=== PATIENT | female | born 1945 | race Caucasian/White ===

== ENCOUNTER → 2016-08-25 | Outpatient (CLI) | payer OTHER, MEDICARE ==
[~2016-08-25] MED LIST: ARTHRITIS PAIN650 M1 PO; AUGMENTIN 875-1 EACH PO; BACTRIM DS 8001 TAB PO; CELEXA40 MG PO; CIPRO 500MG TA500 MG PO; CRANBERRY400 MG PO; DIFLUCAN 200MG200 MG PO; DULCOLAX100 MG PO; FERROUS SULFAT325 M2 PO; GABAPENTIN 600600 MG PO; GABAPENTIN300 MG PO; GOOD SENSE NASA30 MG PO; LEVAQUIN500 MG PO; LEVOFLOXACIN 7750 M1 PO; LEVOTHROID0.175 MG PO; LEVOTHYROXIN0.025 M1 PO; LEVOTHYROXIN0.075 M1 PO; LEVOTHYROXINE0.15 MG PO; LISINOPRIL 20MG20 MG PO; LORTAB 500 MG-71 TAB PO; MIRALAX(PO17 GM/1 PA PO; MIRALAX17 GM/DOSE PO; MIRAPEX 0.250.25 MG PO; NORCO 325 MG-51 TAB PO; PERCOCET 5/3251 EACH PO; PHENERGAN 25MG.25 M1 PO; PRAVASTATIN 40M40 MG PO; RIFADIN 300MG300 MG PO; ROBAXIN 500 MG500 MG PO; SLEEPING PILL PO; VALIUM5 MG PO; VOLTAREN50 MG PO; ZOFRAN ODT4 MG PO
[2016-08-25 17:40] LABS: BUN 13 mg/dL (7-18)
[2016-08-25 17:46] LABS: GFR (ESTIMATED) 45 ML/MIN (59-)
== END ==
LOC: LAB 15:18
PROVIDERS: Internal Medicine Gastroenterology
DX: R74.8 Abnormal levels of other serum enzymes (principal); K75.4 Autoimmune hepatitis

== ENCOUNTER → 2016-09-02 | Outpatient (CLI) | payer OTHER, MEDICARE ==
--- NOTE | 2016-09-03 07:26 | RADIOLOGY REPORT PS360 ---
KNEE-3 VIEWS-LT HISTORY: Knee pain PRIMARY OSTEOARTHRITIS OF LEFT KNEE ORDERING PHYSICIAN: Brendan Arango MD PATIENT AGE: 70 years COMPARISON: 03/25/2016 FINDINGS: There are mild osteoarthritic changes of the left knee with decrease in the joint space medially and with small osteophytes at the medial compartment and patellofemoral joint as well as the lateral compartment. No fracture or dislocation. No lytic or blastic change. No obvious effusion. IMPRESSION: No change mild osteoarthritis of the left knee
== END ==
LOC: RAD 15:42
DX: M15.0 Primary generalized (osteo)arthritis (principal); M17.12 Unilateral primary osteoarthritis, left knee

== ENCOUNTER 2017-02-21 11:04 | Emergency (ER) | payer OTHER, MEDICARE ==
[~2017-02-21] VITALS: Ht 165.1 cm; Wt 90.7 kg
[2017-02-21] MEDS ORDERED: PREDNISONE 5MG.5 MG PO (11:15)
[2017-02-21] MEDS ORDERED: CALCIUM + D SO1 EACH PO (11:15)
[2017-02-21] MEDS ORDERED: AZATHIOPRINE50 MG PO (11:16)
[2017-02-21] MEDS ORDERED: MELOXICAM15 MG PO (11:17)
[2017-02-21] MEDS ORDERED: FLONASE 50 MCG16 GM (11:32)
[2017-02-21] MEDS ORDERED: CLARITIN 10MG T10 MG PO (11:32)
[2017-02-21 11:33] VITALS: BP 164/98
--- NOTE | 2017-02-21 11:33 | Urgent Treatment Center Report ---
History of Present Issue Date/Time Seen by Provider 02/21/17 1122 Visit Reason Pt arrived:Walked Presenting Problem:PT STATES HEADACHE, RUNNY NOSE AND SNEEZING THAT BEGAN LAST NIGHT Location if Accident: Onset of symptoms date/time:02/20/17/ or onset unknown for:MEDICAL HX UNKNOWN Have you (or family members/close friends) recently traveled outside the [place]? N If Yes, where/when: Have you had exposure to infectious disease within the past month? TB? Other? Specify: c/o not feeling well. General malaise this morning with new onset rhinorrhea, nasal congestion, PND, sneezing. Blames symptoms on working lawn and garden last night at [employer] in the cold without a jacket. No fever, aches, chills. Tylenol sinus once hasn't helped. Source patient Exam Limitations no limitations ALLERGIES Coded Allergies: amoxicillin (01/28/16) clavulanic acid (From Augmentin) (01/28/16) sulfamethoxazole (From Bactrim) (01/28/16) trimethoprim (From Bactrim) (01/28/16) Home Medications Active Scripts LISINOPRIL (Lisinopril) 20 MG PO DAILY #30 TAB Ref 2 Prov: 04/28/12 Reported Medications Gabapentin (Gabapentin 600MG) 1,200 MG PO BID Methocarbamol (Robaxin 500MG) 1,000 MG PO TID POLYETHYLENE GLYCOL (Miralax) 17 GM PO DAILY Pramipexole Dihydrochloride Mo (Mirapex 0.25 Mg Tablets) 0.25 MG PO TID Levothyroxine Sodium (Levothyroxine 0.025MG) 0.125 MG PO DAILY #30 TAB Ca Carbonate/Vitamin D3/Vit K (Calcium + D Soft Chewable Tab) 1 EACH PO DAILY Prednisone (Prednisone 5MG) 5 MG PO DAILY Azathioprine 50 MG PO DAILY Meloxicam (Meloxicam 15MG) 15 MG PO DAILY History Medical History General CAD? No Angina: No [place]: No Hypertension? Yes Hyperlipidemia? No CHF? No DVT? No PE? No COPD? No Asthma? No Anemia? No GERD? No Gastric ulcers? No GI Bleed? No Hernia? No Thyroid Problems? Yes Hypothyroidism? Yes CVA? No Seizures? No Diabetes? No Renal Insuffiency? No UTI? Yes Stones? No BPH? No GB Disease: No Nephritic Syndrome? No Asplenia? No Hepatitis? Yes Sickle Cell Disease? No Arthritis? Yes Migraines? No Cataracts? Yes Glaucoma? No MRSA? Yes HIV? No TB? No Anxiety? No Depression? No Cancer? No More? Yes Additional hx: HYPOTHYROID ARTHRITIS Immunization HX DT/Tetanus 1-4 Years Ago Flu 2015-16FSN Pneumonia Received In Past Surgical Hx Previous Surgery?Y COLONOSCOPY CATARACTS TONSILLECTOMY HYSTERECTOMY R WRIST R ANKLE BLADDER TUCK Family History Family HX Diabetes No CAD Yes Hypertension Yes Hyperlipidemia Yes Cancer Yes TB No Social History Smoking Hx Smoker: Former Smoker Tobacco: No Alcohol Alcohol: No Review of Systems All Other Systems Reviewed and Negative Constitutional see HPI Eyes other (itchy eyes), denies drainage ENT see HPI, nose congestion. denies: ear discharge, throat pain, throat swelling. Respiratory see HPI, denies cough, denies shortness of breath, denies wheezing Cardiovascular denies chest pain Gastrointestinal denies no symptoms reported Musculoskeletal see HPI Skin denies rash Psychiatric/Neurological headache ("not pain. more pressure") Physical Exam Vital Signs Vital Signs Date Time Temp Pulse Resp B/P Pulse O2 O2 Flow FiO2 Ox Delivery Rate 02/21 1109 98.3 70 20 164/98 95 General Appearance no apparent distress, obese Eye Exam - bilateral eye normal exam Ear, Nose, Throat normal ENT inspection (x/ clear rhinorrhea) Neck non-tender, supple Respiratory Status Yes: trachea midline, chest symmetrical, non tender chest. No: respiratory distress, use of accessory muscles, pain on inspiration, pain on expiration, productive cough, non productive cough. Lung Sounds anterior: lungs clear. posterior: lungs clear. bilateral: lungs clear. Cardiovascular regular rate/rhythm, no peripheral edema, no murmur Neurologic alert, oriented x 3 Mental status normal mood/affect Skin normal color, warm/dry Lymphatic no adenopathy Medical Decision Making LABS/Meds/Orders Pt receiving controlled substance in ED? No Departure Departure Time of Disposition 1129 Disposition DC Home or Self Care(routine) Clinical Impression Primary Impression: Upper respiratory virus Condition STABLE Referrals Brendan Arango MD (Family) IMMEDIATELY for new or worsening symptoms OR no noticeable improvement over the next 48-72 hours. 911 for difficulty breathing or swallowing. Patient Instructions DI for Viral Upper Respiratory Infection -- Adult Additional Instructions * No sign of bacterial infection. Sounds like possibly allergies if you worked [employer] and this started. I understand it doesn't feel like allergies to you. Could possibly also be viral considering how much of that we are seeing right now. Virus can take 7-14 days to run their course * Monitor Temp. Tylenol every 4 hours as needed and/or ibuprofen every 6 hours as needed (as long as your primary care doctor has told you that it is ok to take both) for fever/aches/pain. ER if fever no less than 101 despite tylenol and ibuprofen * Encourage fluids, water, gatorade, powerade, pedialyte if /toddler/child * warm salt water gargles * warm fluids * sore throat lozenges * sleep elevated * humidifier/vaporizer * flonase 2 sprays each nostril daily but may take 2-3 days to notice improvement with it. * Claritin 10mg daily * Coricidin Hbp product OTC. Ask your pharmacist to direct you to this product as it is safer in those with high blood pressure then tylenol cold and sinus. Use caution with tylenol if you are worried about your liver. Discharge Counseling Counseled pt/family regarding diagnosis, medications/RX, home care, follow up needs Prescriptions Current Visit Scripts Loratadine (Claritin 10MG) 10 MG PO DAILY #30 TAB Fluticasone Propionate (Flonase 50 Mcg Nasal [place]) 2 SPRAY NA DAILY #1 BOT at 1138
== END 2017-02-21 11:42 | disposition home or self-care (01) ==
LOC: UTC 11:04
DX: J06.9 Acute upper respiratory infection, unspecified (principal); Z87.891 Personal history of nicotine dependence; I10 Essential (primary) hypertension; E03.9 Hypothyroidism, unspecified; Z79.899 Other long term (current) drug therapy; Z79.52 Long term (current) use of systemic steroids

== ENCOUNTER → 2017-03-10 | Outpatient (CLI) | payer OTHER, MEDICARE ==
[2017-03-10 12:19] LABS: HEMOGLOBIN 14.5 g/dL (12.2-16.2); LYMPH # 1.5 K/mm3 (0.7-4.5); LYMPH % 20.5 % (10-50.0)
[2017-03-10 14:22] LABS: BUN 18 mg/dL (7-18); GFR (ESTIMATED) 55 ML/MIN (59-)
== END ==
LOC: LAB 11:42
PROVIDERS: Internal Medicine Gastroenterology
DX: K75.4 Autoimmune hepatitis (principal)

== ENCOUNTER → 2017-03-23 | Outpatient (CLI) | payer OTHER, MEDICARE ==
[~2017-03-23] MED LIST changes: +AZATHIOPRINE50 MG PO; +CALCIUM + D SO1 EACH PO; +CLARITIN 10MG T10 MG PO; +FLONASE 50 MCG16 GM; +IMODIUM A-D2 M3 PO; +MELOXICAM15 MG PO; +OMNICEF 300 MG300 MG PO; +PREDNISONE 5MG.5 MG PO; +PROMETHAZINE D118 ML PO; +ZOFRAN4 MG PO
[2017-03-23 23:20] LABS: BUN 16 mg/dL (7-18)
[2017-03-23 23:21] LABS: GFR (ESTIMATED) 62 ML/MIN (59-)
== END ==
LOC: LAB 21:30
PROVIDERS: Internal Medicine Gastroenterology
DX: K75.4 Autoimmune hepatitis (principal)

== ENCOUNTER 2017-04-08 16:46 | Emergency (ER) | payer OTHER, MEDICARE ==
[~2017-04-08] VITALS: Ht 165.1 cm; Wt 90.7 kg
[~2017-04-08 16:46] MED LIST changes: -IMODIUM A-D2 M3 PO; -OMNICEF 300 MG300 MG PO; -PROMETHAZINE D118 ML PO; -ZOFRAN4 MG PO
--- OUTSIDE RECORDS SUMMARY | 2017-04-08 17:03 | External Medical Summary Rpt | CCD ---
Demographics Preferred Language Occitan Marital Status Unknown Mu-Ism Affiliation Unknown Race Unknown Ethnic Group Unknown Author Author SHANA Address Unknown Phone [email or web address] Purpose Continuity of Care Document - through 2016
--- OUTSIDE RECORDS SUMMARY | 2017-04-08 17:03 | External Medical Summary Rpt | CCD ---
Author Author , SHANA SALDANA Address Unknown Phone [email or web address] Team Providers Care Tower Switch Operator Name Role Phone Brendan Arango MD, Unavailable Unavailable Brendan Arango MD Purpose Continuity of Care Document - 05-22-2013 through 2016 Problems Code Diagnosis DOS Provider Status [id number] Aspiration [place] pneumonia [facility] 728.88 Rhabdomyoly [place] sis [facility] 780.97 Altered [facility] Allergies, Adverse Reactions, Alerts Type Allergy to substance Adverse Reaction to Substance Substance Reaction Severity NO KNOWN ALLERGIES Unknown Unknown Medications Na ND Rx Da Fi Fi Am Da Di Ph RX Ph St me C No te ll ll ou ys ag ar # ys at rm s nt no ma ic us Or Da si cy ia de te s n re d ON 00 12 0 No DA 64 -1 NS 16 2- Lo ET 08 20 ng RO 02 13 er N 5 HC Ac L ti 4 ve MG /2 ML AL LE 50 12 0 No VA 45 -1 QU 80 2- Lo IN 16 20 ng -D 80 13 er 5W 1 Ac 50 ti 0 ve MG /1 00 ML BA G SO 00 12 1 No DI 40 -1 UM 97 1- Lo 98 20 ng CH 30 13 er LO 9 RI Ac DE ti ve 0. 9% SO KILEY TI ON MA 00 12 1 No PA 90 -1 P 41 1- Lo 32 98 20 ng 5 26 13 er MG 1 Ac TA ti BL ve ET Vital Signs 05-23-2013 16:45 Name Value Interpretat Reference Comment ion Range Body 98.2 [degF] Temperature BP 52 mm[Hg] Diastolic BP Systolic 118 mm[Hg] Heart 72 /min Rate/Pulse Respiratory 18 /min Rate 05-23-2013 16:00 Name Value Interpretat Reference Comment ion Range O2% 98 % 05-22-2013 20:14 Name Value Interpretat Reference Comment ion Range Height 165.10 cm Weight 82.782 kg Measured 05-22-2013 16:56 Name Value Interpretat Reference Comment ion Range Body 99.1 [degF] Temperature BP 83 mm[Hg] Diastolic BP Systolic 145 mm[Hg] Heart 104 /min Rate/Pulse O2% 97 % Respiratory 22 /min Rate Weight 0 [oz_av] Measured Results Labs Lab Lab Date Result Refere Interp Status Commen Order Detail nces retati t Range on Comprehensive metabolic panel (03-23-2017 22:25) Protein = 7.0 6.4-8.2 complet total 017 gm/dL ed ser/stefano 22:25 s ALT = 25 12-78 complet (SGPT) 017 U/L ed ser/stefano 22:25 s Serum = 16 15-37 complet or 017 U/L ed plasma 22:25 asparta te aminotr ansfera Serum = 139 136-145 complet sodium 017 mmoL/L ed measure 22:25 ment Serum = 4.1 3.5-5.1 complet potassi 017 mmoL/L ed um 22:25 measure ment Serum = 110 74-106 complet or 017 mg/dL ed plasma 22:25 glucose measure ment (mas Serum = 3.0 1.3-3.2 complet globuli 017 gm/dL ed n 22:25 measure ment (mass/v olume) Estimat = 62 59- complet ed 017 ML/MIN ed glomeru 22:25 lar filtrat ion rate (GF Comment: REFERENCE RANGE: >60 ML/MIN/1.73 SQUARE METERS Comment: If this patient is -Qatari, then multiply the Comment: result by 1.210. Serum 2 = 0.9 0.55-1. complet or 017 mg/dL 02 ed plasma 22:25 creatin ine measure ment ( Carbon 2 = 32 21.0-32 complet dioxide 017 mmoL/L .0 ed 22:25 measure ment Serum 2 = 105 98-107 complet or 017 mmoL/L ed plasma 22:25 chlorid e measure ment (mo Serum 2 = 8.7 8.5-10. complet or 017 mg/dL 1 ed plasma 22:25 calcium measure ment (mas Serum = 16 7-18 complet or 017 mg/dL ed plasma 22:25 urea nitroge n measure men Serum = 0.4 0.2-1.0 complet or 017 mg/dL ed plasma 22:25 total bilirub in measure m Serum = 104 46-116 complet or 017 U/L ed plasma 22:25 alkalin e phospha tase tiki Serum = 4.0 3.4-5.0 complet or 017 gm/dL ed plasma 22:25 albumin measure ment (mas Serum = 1.3 1.1-1.8 complet or 017 ed plasma 22:25 albumin /globul in mass ra BASIC METABOLIC PANEL (05-23-2013 06:05) Glucose 105 74-106 complet 013 mg/dL ed Bld-mCn 06:05 c BUN 11 7-18 complet Bld-mCn 013 mg/dL ed c 06:05 Creat 0.9 0.6-1.0 complet SerPl-m 013 mg/dL ed Cnc 06:05 Creat 81 50-200 complet Cl 013 ML/MIN ed predict 06:05 ed SerPl C-G-vRa te GFR/BSA 63 59- complet .pred 013 ML/MIN ed SerPl 06:05 Schwart z-vRate Sodium 141 136-145 complet SerPl-s 013 mmoL/L ed Cnc 06:05 Potassi 3.8 3.5-5.1 complet um 013 mmoL/L ed SerPl-s 06:05 Cnc Chlorid 107 98-107 complet e 013 mmoL/L ed SerPl-s 06:05 Cnc CO2 28 21.0-32 complet SerPl-s 013 mmoL/L .0 ed Cnc 06:05 Calcium 7.6 8.5-10. complet 013 mg/dL 1 ed SerPl-m 06:05 Cnc CBC with AUTO DIFF (05-23-2013 06:05) WBC # 6.9 4.8-10. complet Bld 013 K/MM3 8 ed Auto 06:05 RBC # 12-12-2 4.16 4.2-5.4 complet Bld 013 M/mm3 ed Auto 06:05 Hgb 12-12-2 9.9 12.2-16 complet Bld-mCn 013 g/dL .2 ed c 06:05 Hct Fr 12-2 32.5 % 37.0-47 complet Bld 013 .0 ed 06:05 MCV RBC 12-2 78.3 fl 82.2-97 complet 013 .8 ed 06:05 MCH RBC 12-2 23.9 pg 27-31.2 complet Qn 013 ed Auto 06:05 MEAN 12-12-2 30.5 31.8-35 complet CORPUSC 013 g/dl .4 ed ULAR 06:05 HGB CONC RDW RBC 12-2 15.6 % 11.5-17 complet Auto 013 .5 ed 06:05 Platele 12-12-2 296 142-424 complet t Bld 013 K/mm3 ed Ql 06:05 Manual MEAN 2 7.3 fl 7.4-10. complet PLATELE 013 4 ed T 06:05 VOLUME Granulo -12-2 69.7 % 37.0-80 complet cytes 013 .0 ed Fr Bld 06:05 Auto LYMPH % -12-2 23.7 % 10-50.0 complet 013 ed 06:05 Monocyt 12-12-2 5.9 % 1.7-9.3 complet es Fr 013 ed Bld 06:05 Auto Eosinop 12-12-2 0.6 % 0.1-12. complet hil Fr 013 0 ed Bld 06:05 Auto Basophi 12-12-2 0.1 % 0.1-2.0 complet ls Fr 013 ed Bld 06:05 Auto Granulo 12-12-2 4.8 1.8-7.8 complet cytes # 013 K/mm3 ed Bld 06:05 Auto Lymphoc 12-12-2 1.6 0.7-4.5 complet ytes Fr 013 K/mm3 ed Bld 06:05 Auto Monocyt 12-12-2 0.4 0.1-1.0 complet es # 013 K/mm3 ed Bld 06:05 Auto Eosinop 12-12-2 0.0 0.0-0.4 complet hil # 013 K/mm3 ed Bld 06:05 Auto Basophi 1212-2 0.0 0-0.2 complet ls # 013 K/MM3 ed Bld 06:05 Auto URINALYSIS/COMPLETE (05-23-2013 03:36) URINE 12-12-2 YELLOW YELLOW complet COLOR 013 ed 03:36 URINE 12-12-2 SL CLEAR complet APPEARA 013 CLOUDY ed NCE 03:36 URINE 05-23-2 NEGATIV NEG complet GLUCOSE 013 E ed - 03:36 DIPSTIC K URINE 12-2 NEGATIV NEG complet BILIRUB 013 E ed IN - 03:36 DIPSTIC K URINE 12-2 NEGATIV NEG complet KETONE 013 E mg/dL ed 03:36 URINE 05-23-2 1.025 1.005-1 complet SPECIFI 013 UNK .030 ed C 03:36 GRAVITY URINE 05-23-2 NEGATIV NEG complet BLOOD 013 E ed 03:36 URINE 05-23-2 6.0 UNK 5.0-8.5 complet PH 013 ed 03:36 URINE 05-23-2 NEGATIV NEG complet PROTEIN 013 E mg/dL ed - 03:36 DIPSTIC K URINE 05-23-2 0.2 NEG complet UROBILI 013 E.U./dL ed NOGEN - 03:36 DIPSTIC K URINE 05-23-2 NEGATIV NEG complet NITRATE 013 E ed - 03:36 DIPSTIC K URINE 12-2 2+ NEG complet LEUK 013 ed ESTERAS 03:36 E URINE 05-23-2 OCC 0 complet RBC 013 rbc/hpf ed 03:36 URINE 05-23-2 20-50 O complet WBC 013 wbc/hpf ed 03:36 URINE 12-2 10-20 0-5 complet SQUAMOU 013 #/hpf ed S CELLS 03:36 URINE 05-23-2 3+ O complet BACTERI 013 ed A 03:36 COMPREHENSIVE METABOLIC PANEL (05-22-2013 17:00) Glucose 05-22- 126 74-106 complet 013 mg/dL ed Bld-mCn 17:00 c BUN 05-22- 10 7-18 complet Bld-mCn 013 mg/dL ed c 17:00 Creat 1.0 0.6-1.0 complet SerPl-m 013 mg/dL ed Cnc 17:00 Creat 72 50-200 complet Cl 013 ML/MIN ed predict 17:00 ed SerPl C-G-vRa te GFR/BSA 56 59- complet .pred 013 ML/MIN ed SerPl 17:00 Schwart z-vRate Sodium 137 136-145 complet SerPl-s 013 mmoL/L ed Cnc 17:00 Potassi 4.3 3.5-5.1 complet um 013 mmoL/L ed SerPl-s 17:00 Cnc Chlorid 103 98-107 complet e 013 mmoL/L ed SerPl-s 17:00 Cnc CO2 29 21.0-32 complet SerPl-s 013 mmoL/L .0 ed Cnc 17:00 Calcium 8.5 8.5-10. complet 013 mg/dL 1 ed SerPl-m 17:00 Cnc Prot 8.3 6.4-8.2 complet SerPl-m 013 gm/dL ed Cnc 17:00 Albumin 3.7 3.4-5.0 complet 013 gm/dL ed SerPl-m 17:00 Cnc Globuli 05-22- 4.6 1.3-3.2 complet n 013 gm/dL ed Ser-mCn 17:00 c Albumin 05-22- 0.8 UNK 1.1-1.8 complet /Glob 013 ed SerPl-m 17:00 Rto Bilirub 05-22- 0.6 0.2-1.0 complet 013 mg/dL ed SerPl-m 17:00 Cnc AST 05-22-2 43 U/L 15-37 complet SerPl-c 013 ed Cnc 17:00 ALT 05-22-2 80 U/L 30-65 complet SerPl-c 013 ed Cnc 17:00 ALP 05-22-2 270 U/L 50-136 complet SerPl-c 013 ed Cnc 17:00 CBC with AUTO DIFF (05-22-2013 17:00) WBC # 12-11-2 12.2 4.8-10. complet Bld 013 K/MM3 8 ed Auto 17:00 RBC # 12-11-2 5.25 4.2-5.4 complet Bld 013 M/mm3 ed Auto 17:00 Hgb 05-22-2 12.7 12.2-16 complet Bld-mCn 013 g/dL .2 ed c 17:00 Hct Fr 41.0 % 37.0-47 complet Bld 013 .0 ed 17:00 MCV RBC 78.0 fl 82.2-97 complet 013 .8 ed 17:00 MCH RBC 24.2 pg 27-31.2 complet Qn 013 ed Auto 17:00 MEAN 31.0 31.8-35 complet CORPUSC 013 g/dl .4 ed ULAR 17:00 HGB CONC RDW RBC 15.6 % 11.5-17 complet Auto 013 .5 ed 17:00 Platele 05-22-2 364 142-424 complet t Bld 013 K/mm3 ed Ql 17:00 Manual MEAN 6.8 fl 7.4-10. complet PLATELE 013 4 ed T 17:00 VOLUME Granulo 05-22-2 91.6 % 37.0-80 complet cytes 013 .0 ed Fr Bld 17:00 Auto LYMPH % --2 5.1 % 10-50.0 complet 013 ed 17:00 Monocyt 12--2 2.8 % 1.7-9.3 complet es Fr 013 ed Bld 17:00 Auto Eosinop 12-11-2 0.4 % 0.1-12. complet hil Fr 013 0 ed Bld 17:00 Auto Basophi -11-2 0.1 % 0.1-2.0 complet ls Fr 013 ed Bld 17:00 Auto Granulo -11-2 11.2 1.8-7.8 complet cytes # 013 K/mm3 ed Bld 17:00 Auto Lymphoc 12-11-2 0.6 0.7-4.5 complet ytes Fr 013 K/mm3 ed Bld 17:00 Auto Monocyt 12-11-2 0.3 0.1-1.0 complet es # 013 K/mm3 ed Bld 17:00 Auto Eosinop 12-11-2 0.1 0.0-0.4 complet hil # 013 K/mm3 ed Bld 17:00 Auto Basophi 12-11-2 0.0 0-0.2 complet # 013 K/MM3 ed Bld 17:00 Auto Encounters Encounter Start End Date Code Location Performer Type Date Inpatient IMP Td Arango MD ([place]) 3 17:32 3 16:45 [facility]
--- OUTSIDE RECORDS SUMMARY | 2017-04-08 17:03 | External Medical Summary Rpt | CCD ---
Author Author , SHANA SALDANA Address Unknown Phone [email or web address] Team Providers Care Vice President Of Product Marketing Name Role Phone Brendan Arango MD, Unavailable Unavailable Brendan Arango MD Purpose Continuity of Care Document - 05-22-2013 through 2016 Problems Code Diagnosis DOS Provider Status [id number] Aspiration [place] pneumonia [facility] 728.88 Rhabdomyoly [place] sis [facility] 780.97 Altered [facility] Allergies, Adverse Reactions, Alerts Type Allergy to [...] SQUARE METERS Comment: If this patient is -Beninese, then multiply the Comment: result by 1.210. [...] Arango MD ([place]) 3 17:32 3 16:45 [facility]
--- OUTSIDE RECORDS SUMMARY | 2017-04-08 17:03 | External Medical Summary Rpt | CCD ---
Demographics Preferred Language Armenian Marital Status Unknown Uatsdin Affiliation Unknown Race Unknown Ethnic Group Unknown Author Author SHANA Address Unknown Phone [email or web address] Purpose Continuity of Care Document - through 2016
--- OUTSIDE RECORDS SUMMARY | 2017-04-08 17:03 | External Medical Summary Rpt | CCD ---
Author Author , SHANA SALDANA Address Unknown Phone [email or web address] Immunization Name Date Rout CVX Reac Dose Comm Prov Is Faci e tion ent ider Refu lity Give sed n PPV2 02-0 Intr 33 0.5 Hist PD20 No PD20 3 1-20 amus mL oric 255 255 17 cula al r Info rmat ion - Sour ce Unsp ecif ied
--- OUTSIDE RECORDS SUMMARY | 2017-04-08 17:03 | External Medical Summary Rpt | CCD ---
Author Author , SHANA SALDANA Address Unknown Phone [email or web address] Immunization Name Date Rout CVX Reac Dose Comm Prov Is Faci e tion ent ider Refu lity Give sed n PPV2 02-0 Intr 33 0.5 Hist PD20 No PD20 3 1-20 amus mL oric 255 255 17 cula al r Info rmat ion - Sour ce Unsp ecif ied
--- OUTSIDE RECORDS SUMMARY | 2017-04-08 17:04 | External Medical Summary Rpt ---
Author Author SHANA Diggs, [employer] Organization [employer] Address Unknown Phone Unavailable Results Comprehensive metabolic 2000 panel in Serum or Plasma Observa Value Referen Units Interpr Notes Date tion ce etation Range Albumin/G 1.1 - 1.8 No Normal No Mar 12 lobulin informati informati 2017 [Mass on in on in 10:25 PM ratio] in source source Serum or data data Plasma Albumin 3.4 - 5.0 gm/dL Normal No Mar 23 [Mass/vol informati 2016 ume] in on in 10:25 PM Serum or source Plasma data Alkaline 46 - 116 U/L Normal No Mar 23 phosphata informati 2017 se on in 10:25 PM [Enzymati source c data activity/ volume] in Serum or Plasma Bilirubin 0.2 - 1.0 mg/dL Normal No Mar 23 .total informati 2016 [Mass/vol on in 10:25 PM ume] in source Serum or data Plasma Urea 7 - 18 mg/dL Normal No Mar 23 nitrogen informati 2016 [Mass/vol on in 10:25 PM ume] in source Serum or data Plasma Calcium 8.5 - mg/dL Normal No Mar 23 [Mass/vol 10.1 informati 2016 ume] in on in 10:25 PM Serum or source Plasma data Chloride 98 - 107 mmoL/L Normal No Mar 23 [Moles/vo informati 2016 lume] in on in 10:25 PM Serum or source Plasma data Carbon 21.0 - mmoL/L Normal No Mar 12 dioxide, 32.0 informati 2016 total on in 10:25 PM [Moles/vo source lume] in data Serum or Plasma Creatinin 0.55 - mg/dL Normal No Mar 12 e 1.02 informati 2017 [Mass/vol on in 10:25 PM ume] in source Serum or data Plasma Estimated 59- ML/MIN No REFERENCE Oct 12 informati RANGE: 2017 glomerula on in >60 10:25 PM r source ML/MIN/1. filtratio data 73 SQUARE n rate METERSIf (GF this patient is -A merican, then multiply theresult by 1.210. Globulin 1.3 - 3.2 gm/dL Normal No Mar 23 [Mass/vol informati 2017 ume] in on in 10:25 PM Serum source data Glucose 74 - 106 mg/dL High No Mar 23 [Mass/vol informati 2017 ume] in on in 10:25 PM Serum or source Plasma data Potassium 3.5 - 5.1 mmoL/L Normal No Mar 23 inform2016 [Moles/vo on in 10:25 PM lume] in source Serum or data Plasma Sodium 136 - 145 mmoL/L Normal No Mar 23 [Moles/vo informati 2017 lume] in on in 10:25 PM Serum or source Plasma data Aspartate 15 - 37 U/L Normal No Mar 23 inform2016 aminotran on in 10:25 PM sferase source [Enzymati data c activity/ volume] in Serum or Plasma Alanine 12 - 78 U/L Normal No Mar 23 aminotran informati 2016 sferase on in 10:25 PM [Enzymati source c data activity/ volume] in Serum or Plasma Protein 6.4 - 8.2 gm/dL Normal No Mar 23 [Mass/vol informati 2017 ume] in on in 10:25 PM Serum or source Plasma data Comprehensive metabolic 2000 panel in Serum or Plasma Observa Value Referen Units Interpr Notes Date tion ce etation Range Albumin/G 1.1 - 1.8 No Normal No Sep lobulin informati informati 2017 [Mass on in on in 11:47 AM ratio] in source source Serum or data data Plasma Albumin 3.4 - 5.0 gm/dL Normal No Mar 10 [Mass/vol informati 2017 ume] in on in 11:47 AM Serum or source Plasma data Alkaline 46 - 116 U/L High No Sep phosphata informati 2017 se on in 11:47 AM [Enzymati source c data activity/ volume] in Serum or Plasma Bilirubin 0.2 - 1.0 mg/dL Normal No Sep .total informati 2017 [Mass/vol on in 11:47 AM ume] in source Serum or data Plasma Urea 7 - 18 mg/dL Normal No Sep nitrogen informati 2017 [Mass/vol on in 11:47 AM ume] in source Serum or data Plasma Calcium 8.5 - mg/dL Normal No Sep 29 [Mass/vol 10.1 informati 2017 ume] in on in 11:47 AM Serum or source Plasma data Chloride 98 - 107 mmoL/L Normal No Sep 29 [Moles/vo informati 2017 lume] in on in 11:47 AM Serum or source Plasma data Carbon 21.0 - mmoL/L Normal No Sep 29 dioxide, 32.0 informati 2017 total on in 11:47 AM [Moles/vo source lume] in data Serum or Plasma Creatinin 0.55 - mg/dL Normal No Sep 29 e 1.02 informati 2017 [Mass/vol on in 11:47 AM ume] in source Serum or data Plasma Estimated 59- ML/MIN Low REFERENCE Sep 29 RANGE: 2017 glomerula >60 11:47 AM r ML/MIN/1. filtratio 73 SQUARE n rate METERSIf (GF this patient is -A merican, then multiply theresult by 1.210. Globulin 1.3 - 3.2 gm/dL Normal No Sep 29 [Mass/vol informati 2017 ume] in on in 11:47 AM Serum source data Glucose 74 - 106 mg/dL Normal No Sep 29 [Mass/vol informati 2017 ume] in on in 11:47 AM Serum or source Plasma data Potassium 3.5 - 5.1 mmoL/L Normal No Sep 29 informati 2017 [Moles/vo on in 11:47 AM lume] in source Serum or data Plasma Sodium 136 - 145 mmoL/L Normal No Sep 29 [Moles/vo informati 2017 lume] in on in 11:47 AM Serum or source Plasma data Aspartate 15 - 37 U/L Normal No Sep 29 informati 2017 aminotran on in 11:47 AM sferase source [Enzymati data c activity/ volume] in Serum or Plasma Alanine 12 - 78 U/L Normal No Sep 29 aminotran informati 2017 sferase on in 11:47 AM [Enzymati source c data activity/ volume] in Serum or Plasma Protein 6.4 - 8.2 gm/dL Normal No Sep 29 [Mass/vol informati 2017 ume] in on in 11:47 AM Serum or source Plasma data CBC W Auto Differential panel in Blood Observa Value Referen Units Interpr Notes Date tion ce etation Range Basophils 0 - 0.2 K/MM3 Normal No Sep 29 informati 2017 [#/volume on in 11:47 AM ] in source Blood by data Automated count Basophils 0.1 - 2.0 % Normal No Sep 29 /100 informati 2016 leukocyte on in 11:47 AM s in source Blood by data Automated count Eosinophi 0.0 - 0.4 K/mm3 Normal No Sep 29 ls informati 2016 [#/volume on in 11:47 AM ] in source Blood by data Automated count Eosinophi 0.1 - % Normal No Sep 29 ls/100 12.0 informati 2016 leukocyte on in 11:47 AM s in source Blood by data Automated count Granulocy 1.8 - 7.8 K/mm3 Normal No Sep 29 wm informati 2016 [#/volume on in 11:47 AM ] in source Blood by data Automated count Granulocy 37.0 - % Normal No Sep 29 wm/100 80.0 informati 2016 leukocyte on in 11:47 AM s in source Blood by data Automated count Hematocri 37.0 - % Normal No Sep 29 t [Volume 47.0 informati 2017 on in 11:47 AM Fraction] source of Blood data Hemoglobi 12.2 - g/dL Normal No Sep 29 n 16.2 informati 2016 [Mass/vol on in 11:47 AM ume] in source Blood data Lymphocyt 0.7 - 4.5 K/mm3 Normal No Sep 29 es informati 2016 [#/volume on in 11:47 AM ] in source Unspecifi data ed specimen by Automated count Lymphocyt 10 - 50.0 % Normal No Sep 29 es informati 2016 [#/volume on in 11:47 AM ] in source Unspecifi data ed specimen by Automated count Erythrocy 27 - 31.2 pg Normal No Sep 29 te mean informati 2017 corpuscul on in 11:47 AM ar source hemoglobi data n [Entitic mass] Erythrocy 31.8 - g/dl Low No Sep 29 te mean 35.4 informati 2017 corpuscul on in 11:47 AM ar source hemoglobi data n concentra tion [Mass/vol ume] by Automated count Erythrocy 82.2 - fl Normal No Sep 29 te mean 97.8 informati 2016 corpuscul on in 11:47 AM ar volume source [Entitic data volume] by Automated count Monocytes 0.1 - 1.0 K/mm3 Normal No Sep 29 inform2016 [#/volume on in 11:47 AM ] in source Blood by data Automated count Monocytes 1.7 - 9.3 % Normal No Sep 29 /100 informati 2017 leukocyte on in 11:47 AM s in source Blood by data Automated count Platelet 7.4 - fl Normal No Sep 29 mean 10.4 informati 2017 volume on in 11:47 AM [Entitic source volume] data in Blood by Automated count Platelets 142 - 424 K/mm3 Normal No Sep 29 informati 2016 [#/volume on in 11:47 AM ] in source Blood data Erythrocy 4.2 - 5.4 M/mm3 Normal No Sep 29 wm informati 2016 [#/volume on in 11:47 AM ] in source Amniotic data fluid Erythrocy 11.5 - % Normal No Sep 29 te 17.5 informati 2016 distribut on in 11:47 AM ion width source [Entitic data volume] by Automated count Leukocyte 4.8 - K/MM3 Normal No Sep 29 s 10.8 informati 2016 [#/volume on in 11:47 AM ] in source Blood data Comprehensive metabolic 2000 panel in Serum or Plasma Observa Value Referen Units Interpr Notes Date tion ce etation Range Albumin/G 1.1 - 1.8 No Normal No Sep 14 lobulin informati informati 2017 3:44 [Mass on in on in PM ratio] in source source Serum or data data Plasma Albumin 3.4 - 5.0 gm/dL Normal No Sep 14 [Mass/vol informati 2017 3:44 ume] in on in PM Serum or source Plasma data Alkaline 46 - 116 U/L Normal No Sep 14 phosphata informati 2017 3:44 se on in PM [Enzymati source c data activity/ volume] in Serum or Plasma Bilirubin 0.2 - 1.0 mg/dL Normal No Sep 14 .total informati 2017 3:44 [Mass/vol on in PM ume] in source Serum or data Plasma Urea 7 - 18 mg/dL Normal No Sep 14 nitrogen informati 2017 3:44 [Mass/vol on in PM ume] in source Serum or data Plasma Calcium 8.5 - mg/dL Normal No Sep 14 [Mass/vol 10.1 informati 2017 3:44 ume] in on in PM Serum or source Plasma data Chloride 98 - 107 mmoL/L Normal No Sep 14 [Moles/vo informati 2017 3:44 lume] in on in PM Serum or source Plasma data Carbon 21.0 - mmoL/L Normal No Sep 14 dioxide, 32.0 informati 2016 3:44 total on in PM [Moles/vo source lume] in data Serum or Plasma Creatinin 0.55 - mg/dL Normal No Sep 14 e 1.02 informati 2016 3:44 [Mass/vol on in PM ume] in source Serum or data Plasma Estimated 59- ML/MIN Low REFERENCE Sep 14 RANGE: 2016 3:44 glomerula >60 PM r ML/MIN/1. filtratio 73 SQUARE n rate METERSIf (GF this patient is -A merican, then multiply theresult by 1.210. Globulin 1.3 - 3.2 gm/dL Normal No Sep 14 [Mass/vol informati 2016 3:44 ume] in on in PM Serum source data Glucose 74 - 106 mg/dL High No Sep 14 [Mass/vol informati 2016 3:44 ume] in on in PM Serum or source Plasma data Potassium 3.5 - 5.1 mmoL/L Normal No Sep 14 inform2016 3:44 [Moles/vo on in PM lume] in source Serum or data Plasma Sodium 136 - 145 mmoL/L Normal No Sep 14 [Moles/vo informati 2017 3:44 lume] in on in PM Serum or source Plasma data Aspartate 15 - 37 U/L Normal No Sep 14 inform2016 3:44 aminotran on in PM sferase source [Enzymati data c activity/ volume] in Serum or Plasma Alanine 12 - 78 U/L Normal No Sep 14 aminotran informati 2016 3:44 sferase on in PM [Enzymati source c data activity/ volume] in Serum or Plasma Protein 6.4 - 8.2 gm/dL Normal No Sep 14 [Mass/vol informati 2016 3:44 ume] in on in PM Serum or source Plasma data Comprehensive metabolic 2000 panel in Serum or Plasma Observa Value Referen Units Interpr Notes Date tion ce etation Range Albumin/G 1.1 - 1.8 No Normal No Dec 30 lobulin informati informati 2016 4:45 [Mass on in on in PM ratio] in source source Serum or data data Plasma Albumin 3.4 - 5.0 gm/dL Normal No Dec 30 [Mass/vol informati 2016 4:45 ume] in on in PM Serum or source Plasma data Alkaline 46 - 116 U/L Normal No Dec 30 phosphata informati 2016 4:45 se on in PM [Enzymati source c data activity/ volume] in Serum or Plasma Bilirubin 0.2 - 1.0 mg/dL Normal No Dec 30 .total informati 2016 4:45 [Mass/vol on in PM ume] in source Serum or data Plasma Urea 7 - 18 mg/dL Normal No Dec 30 nitrogen informati 2016 4:45 [Mass/vol on in PM ume] in source Serum or data Plasma Calcium 8.5 - mg/dL Normal No Dec 30 [Mass/vol 10.1 informati 2016 4:45 ume] in on in PM Serum or source Plasma data Chloride 98 - 107 mmoL/L High No Dec 30 [Moles/vo informati 2016 4:45 lume] in on in PM Serum or source Plasma data Carbon 21.0 - mmoL/L Normal No Dec 30 dioxide, 32.0 informati 2016 4:45 total on in PM [Moles/vo source lume] in data Serum or Plasma Creatinin 0.55 - mg/dL High No Dec 30 e 1.02 informati 2016 4:45 [Mass/vol on in PM ume] in source Serum or data Plasma Estimated 59- ML/MIN Low REFERENCE Dec 30 RANGE: 2017 4:45 glomerula >60 PM r ML/MIN/1. filtratio 73 SQUARE n rate METERSIf (GF this patient is -A merican, then multiply theresult by 1.210. Globulin 1.3 - 3.2 gm/dL Normal No Dec 30 [Mass/vol informati 2016 4:45 ume] in on in PM Serum source data Glucose 74 - 106 mg/dL High No Dec 30 [Mass/vol informati 2016 4:45 ume] in on in PM Serum or source Plasma data Potassium 3.5 - 5.1 mmoL/L Normal No Dec 30 informati 2016 4:45 [Moles/vo on in PM lume] in source Serum or data Plasma Sodium 136 - 145 mmoL/L Normal No Dec 30 [Moles/vo informati 2016 4:45 lume] in on in PM Serum or source Plasma data Aspartate 15 - 37 U/L Normal No Dec 30 informati 2016 4:45 aminotran on in PM sferase source [Enzymati data c activity/ volume] in Serum or Plasma Alanine 12 - 78 U/L Normal No Dec 30 aminotran informati 2016 4:45 sferase on in PM [Enzymati source c data activity/ volume] in Serum or Plasma Protein 6.4 - 8.2 gm/dL Normal No Dec 30 [Mass/vol informati 2016 4:45 ume] in on in PM Serum or source Plasma data [id number] marker [Mass/volume] in Serum or Plasma Observa Value Referen Units Interpr Notes Date tion ce etation Range Alpha-1-f 0.0 - 8.3 ng/mL No Lauren Dec 16 etoprotei informati ECLIA 2017 3:21 n.tumor on in methodolo PM marker source gyPerform [Mass/vol data ed at: ume] in CB - Serum or [facility] Plasma [address] [id number] Representative: Artem Chu PhD, Phone: [phone] Comprehensive metabolic 2000 panel in Serum or Plasma Observa Value Referen Units Interpr Notes Date tion ce etation Range Albumin/G 1.1 - 1.8 No Normal No Dec 16 lobulin informati informati 2016 3:21 [Mass on in on in PM ratio] in source source Serum or data data Plasma Albumin 3.4 - 5.0 gm/dL Normal No Dec 16 [Mass/vol informati 2016 3:21 ume] in on in PM Serum or source Plasma data Alkaline 46 - 116 U/L High No Dec 16 phosphata informati 2016 3:21 se on in PM [Enzymati source c data activity/ volume] in Serum or Plasma Bilirubin 0.2 - 1.0 mg/dL Normal No Dec 16 .total informati 2016 3:21 [Mass/vol on in PM ume] in source Serum or data Plasma Urea 7 - 18 mg/dL High No Dec 16 nitrogen informati 2016 3:21 [Mass/vol on in PM ume] in source Serum or data Plasma Calcium 8.5 - mg/dL Normal No Dec 16 [Mass/vol 10.1 informati 2016 3:21 ume] in on in PM Serum or source Plasma data Chloride 98 - 107 mmoL/L Normal No Dec 16 [Moles/vo informati 2016 3:21 lume] in on in PM Serum or source Plasma data Carbon 21.0 - mmoL/L Normal No [place] 7 dioxide, 32.0 informati 2016 3:21 total on in PM [Moles/vo source lume] in data Serum or Plasma Creatinin 0.55 - mg/dL Normal No Dec 16 e 1. informati 2016 3:21 [Mass/vol on in PM ume] in source Serum or data Plasma Estimated 59- ML/MIN Low REFERENCE Dec 16 RANGE: 2016 3:21 glomerula >60 PM r ML/MIN/1. filtratio 73 SQUARE n rate METERSIf (GF this patient is -A merican, then multiply theresult by 1.210. Globulin 1.3 - 3.2 gm/dL Normal No Dec 16 [Mass/vol informati 2016 3:21 ume] in on in PM Serum source data Glucose 74 - 106 mg/dL High DILUTED; Dec 16 [Mass/vol DF2 2016 3:21 ume] in PM Serum or Plasma Potassium 3.5 - 5.1 mmoL/L Normal No Dec 16 informati 2016 3:21 [Moles/vo on in PM lume] in source Serum or data Plasma Sodium 136 - 145 mmoL/L Normal No Dec 16 [Moles/vo informati 2016 3:21 lume] in on in PM Serum or source Plasma data Aspartate 15 - 37 U/L Normal No Dec 16 informati 2016 3:21 aminotran on in PM sferase source [Enzymati data c activity/ volume] in Serum or Plasma Alanine 12 - 78 U/L Normal No Dec 16 aminotran informati 2016 3:21 sferase on in PM [Enzymati source c data activity/ volume] in Serum or Plasma Protein 6.4 - 8.2 gm/dL Normal No Dec 16 [Mass/vol informati 2016 3:21 ume] in on in PM Serum or source Plasma data Urea nitrogen [Mass/volume] in Serum or Plasma Observa Value Referen Units Interpr Notes Date tion ce etation Range Urea 7 - 18 mg/dL High No Nov 30 nitrogen informati 2016 8:55 [Mass/vol on in AM ume] in source Serum or data Plasma CREATININE Observa Value Referen Units Interpr Notes Date tion ce etation Range Creatinin 0.55 - mg/dL Normal No Nov 30 e 1. informati 2016 8:55 [Mass/vol on in AM ume] in source Serum or data Plasma Estimated 59- ML/MIN Low REFERENCE Nov 30 RANGE: 2016 8:55 glomerula >60 AM r ML/MIN/1. filtratio 73 SQUARE n rate METERSIf (GF this patient is -A merican, then multiply theresult by 1.210. Comprehensive metabolic 2000 panel in Serum or Plasma Observa Value Referen Units Interpr Notes Date tion ce etation Range Albumin/G 1.1 - 1.8 No Normal No November 02 lobulin informati informati 2016 7:55 [Mass on in on in AM ratio] in source source Serum or data data Plasma Albumin 3.4 - 5.0 gm/dL Normal No November 02 [Mass/vol informati 2016 7:55 ume] in on in AM Serum or source Plasma data Alkaline 46 - 116 U/L Normal No November 02 phosphata informati 2016 7:55 se on in AM [Enzymati source c data activity/ volume] in Serum or Plasma Bilirubin 0.2 - 1.0 mg/dL Normal No November 02 .total informati 2016 7:55 [Mass/vol on in AM ume] in source Serum or data Plasma Urea 7 - 18 mg/dL Normal No November 02 nitrogen informati 2016 7:55 [Mass/vol on in AM ume] in source Serum or data Plasma Calcium 8.5 - mg/dL Normal No November 02 [Mass/vol 10.1 informati 2016 7:55 ume] in on in AM Serum or source Plasma data Chloride 98 - 107 mmoL/L High No November 02 [Moles/vo informati 2016 7:55 lume] in on in AM Serum or source Plasma data Carbon 21.0 - mmoL/L Normal No November 02 dioxide, 32.0 informati 2016 7:55 total on in AM [Moles/vo source lume] in data Serum or Plasma Creatinin 0.55 - mg/dL Normal No November 02 e 1.02 informati 2016 7:55 [Mass/vol on in AM ume] in source Serum or data Plasma Estimated 59- ML/MIN No REFERENCE November 02 informati RANGE: 2016 7:55 glomerula on in >60 AM r source ML/MIN/1. filtratio data 73 SQUARE n rate METERSIf (GF this patient is -A merican, then multiply theresult by 1.210. Globulin 1.3 - 3.2 gm/dL Normal No November 02 [Mass/vol informati 2016 7:55 ume] in on in AM Serum source data Glucose 74 - 106 mg/dL Normal No November 02 [Mass/vol informati 2016 7:55 ume] in on in AM Serum or source Plasma data Potassium 3.5 - 5.1 mmoL/L Normal No November 02 inform2016 7:55 [Moles/vo on in AM lume] in source Serum or data Plasma Sodium 136 - 145 mmoL/L High No November 02 [Moles/vo informati 2016 7:55 lume] in on in AM Serum or source Plasma data Aspartate 15 - 37 U/L Low No November 02 informati 2016 7:55 aminotran on in AM sferase source [Enzymati data c activity/ volume] in Serum or Plasma Alanine 12 - 78 U/L Normal No November 02 aminotran informati 2016 7:55 sferase on in AM [Enzymati source c data activity/ volume] in Serum or Plasma Protein 6.4 - 8.2 gm/dL Normal No November 02 [Mass/vol informati 2016 7:55 ume] in on in AM Serum or source Plasma data Lipid 1996 panel in Serum or Plasma Observa Value Referen Units Interpr Notes Date tion ce etation Range Cholester < 200 mg/dL High No November 02 ol informati 2016 7:55 [Moles/vo on in AM lume] in source Unspecifi data ed specimen Cholester 40 - 60 MG/DL High No November 02 ol in HDL informati 2016 7:55 on in AM [Mass/vol source ume] in data Serum or Plasma Cholester 0 - 130 mg/dL High No November 02 ol in LDL informati 2016 7:55 on in AM [Mass/vol source ume] in data Serum or Plasma by calcesther on Triglycer 30 - 200 mg/dL Normal No November 02 elayne informati 2016 7:55 [Moles/vo on in AM lume] in source Serum or data Plasma Cholester 0 - 40 No Normal No November 02 ol in informati informati 2016 7:55 VLDL on in on in AM [Mass/vol source source ume] in data data Serum or Plasma Thyrotropin [Units/volume] in Serum or Plasma Observa Value Referen Units Interpr Notes Date tion ce etation Range Thyrotrop 0.358 - uIU/ml Normal No November 02 in 3.740 informati 2016 7:55 [Units/vo on in AM lume] in source Serum or data Plasma CBC W Auto Differential panel in Blood Observa Value Referen Units Interpr Notes Date tion ce etation Range Basophils 0 - 0.2 K/MM3 Normal No November 02 informati 2016 7:55 [#/volume on in AM ] in source Blood by data Automated count Basophils 0.1 - 2.0 % Normal No November 02 informati 2016 7:55 leukocyte on in AM s in source Blood by data Automated count Eosinophi 0.0 - 0.4 K/mm3 Normal No November 02 ls informati 2016 7:55 [#/volume on in AM ] in source Blood by data Automated count Eosinophi 0.1 - % Normal No November 02 ls/100 12.0 informati 2016 7:55 leukocyte on in AM s in source Blood by data Automated count Granulocy 1.8 - 7.8 K/mm3 Normal No November 02 wm informati 2016 7:55 [#/volume on in AM ] in source Blood by data Automated count Granulocy 37.0 - % Normal No November 02 wm/100 80.0 informati 2016 7:55 leukocyte on in AM s in source Blood by data Automated count Hematocri 37.0 - % Normal No November 02 t [Volume 47.0 informati 2016 7:55 on in AM Fraction] source of Blood data Hemoglobi 12.2 - g/dL Normal No November 02 n 16.2 informati 2016 7:55 [Mass/vol on in AM ume] in source Blood data Lymphocyt 0.7 - 4.5 K/mm3 Normal No November 02 es informati 2016 7:55 [#/volume on in AM ] in source Unspecifi data ed specimen by Automated count Lymphocyt 10 - 50.0 % Normal No November 02 es informati 2016 7:55 [#/volume on in AM ] in source Unspecifi data ed specimen by Automated count Erythrocy 27 - 31.2 pg Normal No November 02 te mean informati 2016 7:55 corpuscul on in AM ar source hemoglobi data n [Entitic mass] Erythrocy 31.8 - g/dl Normal No November 02 te mean 35.4 informati 2016 7:55 corpuscul on in AM ar source hemoglobi data n concentra tion [Mass/vol ume] by Automated count Erythrocy 82.2 - fl Normal No November 02 te mean 97.8 informati 2017 7:55 corpuscul on in AM ar volume source [Entitic data volume] by Automated count Monocytes 0.1 - 1.0 K/mm3 Normal No November 02 informati 2016 7:55 [#/volume on in AM ] in source Blood by data Automated count Monocytes 1.7 - 9.3 % Normal No November 02 /100 informati 2017 7:55 leukocyte on in AM s in source Blood by data Automated count Platelet 7.4 - fl Low No November 02 mean 10.4 informati 2016 7:55 volume on in AM [Entitic source volume] data in Blood by Automated count Platelets 142 - 424 K/mm3 Normal No November 02 informati 2016 7:55 [#/volume on in AM ] in source Blood data Erythrocy 4.2 - 5.4 M/mm3 Normal No November 02 wm informati 2016 7:55 [#/volume on in AM ] in source Amniotic data fluid Erythrocy 11.5 - % Normal No November 02 te 17.5 informati 2016 7:55 distribut on in AM ion width source [Entitic data volume] by Automated count Leukocyte 4.8 - K/MM3 Normal No November 02 s 10.8 informati 2016 7:55 [#/volume on in AM ] in source Blood data
--- OUTSIDE RECORDS SUMMARY | 2017-04-08 17:04 | External Medical Summary Rpt ---
[...] in PM Serum or source Plasma data [id number] marker [Mass/volume] in Serum or Plasma Observa Value Referen Units Interpr Notes Date tion ce etation Range Alpha-1-f 0.0 - 8.3 ng/mL No Lauren Dec 16 etoprotei informati ECLIA 2017 3:21 n.tumor on in methodolo PM marker source gyPerform [Mass/vol data ed at: ume] in CB - Serum or [facility] Plasma [address] [id number] [employer] Ware[employer] Associate: Artem Chu PhD, Phone: [phone] Comprehensive metabolic 2000 panel in Serum [...]
--- NOTE | 2017-04-08 17:16 | Emergency Room Report ---
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 N Clinical Suspician of Infection? N Mental Status: 1 - Regular (Normal Baseline) Sepsis Risk:Low Sepsis Risk Have you (or family members/close friends) recently traveled outside the [place]? N If Yes, where/when: Have you had exposure to infectious disease within the past month? N TB? Other? Specify: Source patient, RN notes reviewed Exam Limitations no limitations Comment comes to the ED with complaints of vomiting and diarrhea with dark stool..no BRB since this AM. Also complains of heart burn and history of Acid Reflux. She does not smoke nor drink ETOH Cardiac Chest Pain Chest pain indicative of cardiac Yes Timing/Duration 4-6 hours ALLERGIES Coded Allergies: amoxicillin (01/28/16) clavulanic acid (From Augmentin) (01/28/16) sulfamethoxazole (From Bactrim) (01/28/16) trimethoprim (From Bactrim) (01/28/16) Home Medications Active Scripts LISINOPRIL (Lisinopril) 20 MG PO DAILY #30 TAB Ref 2 Prov: 04/28/12 Loratadine (Claritin 10MG) 10 MG PO DAILY #30 TAB Prov: 02/21/17 Fluticasone Propionate (Flonase 50 Mcg Nasal [place]) 2 SPRAY NA DAILY #1 BOT Prov: 02/21/17 Reported Medications Gabapentin (Gabapentin 600MG) 1,200 MG PO BID Methocarbamol (Robaxin 500MG) 1,000 MG PO TID POLYETHYLENE GLYCOL (Miralax) 17 GM PO DAILY Pramipexole Dihydrochloride Mo (Mirapex 0.25 Mg Tablets) 0.25 MG PO TID Levothyroxine Sodium (Levothyroxine 0.025MG) 0.125 MG PO DAILY #30 TAB Ca Carbonate/Vitamin D3/Vit K (Calcium + D Soft Chewable Tab) 1 EACH PO DAILY Prednisone (Prednisone 5MG) 5 MG PO DAILY Azathioprine 50 MG PO DAILY Meloxicam (Meloxicam 15MG) 15 MG PO DAILY History Medical History General CAD? No Angina: No VT: No Hypertension? Yes Hyperlipidemia? No CHF? No DVT? No PE? No COPD? No Asthma? No Anemia? No GERD? No Gastric ulcers? No GI Bleed? No Hernia? No Thyroid Problems? Yes Hypothyroidism? Yes CVA? No Seizures? No Diabetes? No Renal Insuffiency? No End Stage Renal Disease? No UTI? Yes Stones? No BPH? No GB Disease: No Nephritic Syndrome? No Asplenia? No Hepatitis? Yes Sickle Cell Disease? No Arthritis? Yes Migraines? No Cataracts? Yes Glaucoma? No MRSA? Yes HIV? No TB? No Anxiety? No Depression? No Cancer? No More? Yes Additional hx: HYPOTHYROID ARTHRITIS Immunization Hx DT/Tetanus 1-4 Years Ago Flu 2014-16FSN Pneumonia Received In Past Surgical Hx Previous Surgery?Y COLONOSCOPY CATARACTS TONSILLECTOMY HYSTERECTOMY R WRIST R ANKLE BLADDER TUCK Family History Family Hx Diabetes No CAD Yes Hypertension Yes Hyperlipidemia Yes Cancer Yes TB No Social History Smoking Hx Smoker: Never Smoker Tobacco: No Alcohol Alcohol: No Review of Systems All Other Systems Reviewed and Negative Constitutional see HPI Cardiovascular see HPI Gastrointestinal see HPI Physical Exam Vital Signs Vital Signs Date Time Temp Pulse Resp B/P Pulse O2 O2 Flow FiO2 Ox Delivery Rate 04/08 1755 99.9 98 18 157/74 92 04/08 1719 16 04/08 1704 99.2 103 16 131/87 96 04/08 1701 99.6 99 18 131/50 99 General Appearance normal appearance, moderate distress Respiratory Status No: respiratory distress. Lung Sounds bilateral: normal breath sounds. Cardiovascular normal exam, regular rate/rhythm Gastrointestinal normal bowel sounds, tenderness (in left mid abdomen) Neurologic alert, patient portal concierge II-XII nml as tested, normal exam Medical Decision Making LABS/Meds/Orders Pt receiving controlled substance in ED? Yes Alexi was queried for this patient? Yes Reference #: [id number] Risks/benefits of using a controlled substance for treatment were not discussed w/pt Results/Orders Laboratory Tests 04/08/17 1720: Lactic Acid 1.6 04/08/17 1720: Sodium 139, Potassium 3.9, Chloride 102, Carbon Dioxide 28, BUN 18, Creatinine 1.0, Estimated Creat Clear 76, Estimated GFR (MDRD) 55 L, Glucose 137 H, Calcium 9.4, Total Bilirubin 0.9, AST 21, ALT 30, Alkaline Phosphatase 108, Creatine Kinase 111, CK-MB (CK-2) Rel Index 0.8, CK and CKMB Interp 0.9, Troponin I < 0.02, Total Protein 7.7, Albumin 4.5, Globulin 3.2, Albumin/ Globulin Ratio 1.4, Amylase 34, Lipase 103, WBC 11.5 H, RBC 5.54 H, Hgb 16.2, Hct 49.9 H, MCV 89.9, RDW 13.2, Plt Count 208, MPV 8.3, Gran % 93.2 H, Gran # 10.7 H, Total Counted 100, Lymphocytes % 2.5 L, Monocytes % 2.2, Eosinophils % 1.9, Basophils % 0.2, Neutrophils 90 H, Band Neutrophils 2, Lymphocytes (Manual ) 3 L, Lymphocytes # 0.3 L, Monocytes (Manual) 4, Monocytes # 0.3, Eosinophils # 0.2, Eosinophils # (Manual) 1, Basophils # 0.0, Platelet Estimate NORMAL, PUBS MCHC 32.6, MCH 29.3 Current Medication Orders Sig/Fernando Start time Last Medication Dose Route Stop Time Status Admin Iopamidol 75 ML ONCE ONE 04/08 183 UNV 04/08 IV 04/08 183 1820 Sodium Chloride 10 ML ONCE ONE 04/08 1830 UNV 04/08 IV 04/08 1831 1820 Morphine Sulfate 4 MG ONCE ONE 04/08 1715 DC 04/08 IV 04/08 1716 171 Morphine Sulfate 0 .STK-MED ONE 04/08 1715 DC .ROUTE Ondansetron HCl 4 MG ONCE ONE 04/08 1715 DC 04/08 IV 04/08 1716 171 Ondansetron HCl 0 .STK-MED ONE 04/08 1715 DC .ROUTE Sodium Chloride 10 ML PRN PRN 04/08 1715 AC IV 04/09 171 Sodium Chloride 1,000 ML .Q1H1M 04/08 1715 DC 04/08 IV 04/08 181 1719 Sodium Chloride 10 ML PRN PRN 04/08 1715 AC IV 04/09 1713 Sodium Chloride 1,000 ML .STK-MED ONE 04/08 1715 DC IV Orders Procedure Date/time Status DIET-NOTHING BY MOUTH 04/[address] ABD & PELVIS W/ CONTRAST 04/08 180 Active DIFFERENTIAL-WBC 04/08 172 Complete ELECTROCARDIOGRAM REQUEST 04/[address] ABD/PELVIS REQ 04/08 1711 Complete IV SALINE LOCK 04/08 1711 Active CULTURE, BLOOD 04/08 1711 Active URINALYSIS/COMPLETE 04/08 1711 Active LIPASE 04/08 1711 Complete LACTIC ACID 04/08 1711 Complete CBC WITH AUTO DIFF 04/08 1711 Complete CARDIAC ENZYMES 04/08 1711 Complete CHEM 12 PROFILE 04/08 1711 Complete AMYLASE 04/08 1711 Complete Departure Departure Time of Disposition 2006 Disposition DC Home or Self Care(routine) Clinical Impression Primary Impression: Acute infective gastroenteritis Condition STABLE Referrals Brendan Arango MD (Family): 3 Days-Call Office Patient Instructions DI for Bacterial Gastroenteritis -- Adult Additional Instructions Advised to stay on Clear liquids for the next 24 to 48 hours and Use Imodium after each diarrhea bowel movement but no more than 6 in 1 days. Discharge Counseling Counseled pt/family regarding diagnosis, test results, medications/RX, home care, follow up needs Prescriptions Current Visit Scripts Loperamide HCl (Imodium A-D) 2 MG PO DIRECTED #30 CAPSULE Take 2 pills after next diarrhea bowel movement and then 1 after each BM but not more than 6 in 1 day ONDANSETRON HCL (Zofran 4MG Tab) 4 MG PO Q6HP PRN NAUSEA AND VOMITING #40 TAB ED Critical Care Critical Care No If Critical Care minutes are documented, the time involved in the performance of seperately reportable procedures was not counted toward critical care time documented. I directly delivered medical care to this critically ill and/or injured patient. Timely evaluation and treatment was necessary to address the significant organ system(s) dysfunction present in this patient. at 2012
[2017-04-08 17:32] LABS: LYMPH # 0.3 K/mm3 (0.7-4.5); LYMPH % 2.5 % (10-50.0)
[2017-04-08 17:37] LABS: HEMOGLOBIN 16.2 g/dL (12.2-16.2)
[2017-04-08 17:57] LABS: BUN 18 mg/dL (7-18); GFR (ESTIMATED) 55 ML/MIN (59-)
[2017-04-08 18:01] LABS: NEUTROPHILS 90 % (42-76)
[2017-04-08] MEDS ORDERED: IMODIUM A-D2 M3 PO (20:11)
[2017-04-08] MEDS ORDERED: ZOFRAN4 MG PO (20:11)
[2017-04-08 21:14] VITALS: BP 152/84
--- NOTE | 2017-04-09 08:00 | RADIOLOGY REPORT PS360 ---
CT ABD PELVIS W/ CONTRAST CLINICAL INDICATION: Nausea and vomiting with abdominal pain ABD PAIN ORDERING PHYSICIAN: Jarrett Mcintyre MD PATIENT AGE: 71 years COMPARISON: 07/01/2015 TECHNIQUE: Axial images obtained with sagittal and coronal reformats. PROCEDURE: Oral Contrast: None IV Contrast: 75 mL Isovue-370. FINDINGS: Lower thorax: No acute finding ABDOMEN: Liver: 9 millimeter isodensity left hepatic lobe unchanged Gallbladder: Mildly distended. No radio opaque stones Pancreas: No masses or peripancreatic fluid collections. Spleen: Unremarkable. Adrenals: Unremarkable Kidneys/ureters: No masses. No renal calculi. No hydronephrosis. No perinephric fluid collections. No ureteral dilatation or obvious ureteral calculi. Stomach bowel: Fluid-filled loops of small bowel and colon without evidence of obstruction which may be seen with enteritis/ileus Appendix: No evidence of appendicitis. PELVIS: Reproductive: Post hysterectomy Bladder: Nondistended. No obvious stones or masses. ABDOMEN & PELVIS: Peritoneum: No abnormal fluid collections. No obvious inflammatory changes. No free air. Lymph nodes: No enlarged lymph nodes apparent. Vasculature: No evidence of abdominal aortic aneurysm. No retroperitoneal hemorrhage evident. Bones: Lumbar spondylosis IMPRESSION: Findings consistent with gastroenteritis/diarrhea disease
== END 2017-04-08 21:15 | disposition home or self-care (01) ==
LOC: UTC 16:46 → ER 17:00
PROVIDERS: General Practice
DX: A09 Infectious gastroenteritis and colitis, unspecified (principal); K21.9 Gastro-esophageal reflux disease without esophagitis; I10 Essential (primary) hypertension
CPT/HCPCS: J2405; Q9967

== ENCOUNTER 2017-04-16 10:27 | Emergency (ER) | payer OTHER, MEDICARE ==
[~2017-04-16] VITALS: Ht 165.1 cm; Wt 90.7 kg
[~2017-04-16 10:27] MED LIST changes: +IMODIUM A-D2 M3 PO; +ZOFRAN4 MG PO
--- OUTSIDE RECORDS SUMMARY | 2017-04-16 10:39 | External Medical Summary Rpt | CCD ---
Author Author , SHANA SALDANA Address Unknown Phone [email or web address] Care Team Providers Care Pocket Setter Name Role Phone Brendan Arango MD, Unavailable Unavailable Brendan Arango MD Purpose Continuity of Care Document - 05-22-2013 through 2016 Problems Code Diagnosis DOS Provider Status 137265819 Aspiration [place] pneumonia [facility] 728.88 Rhabdomyoly [place] sis [facility] 780.97 Altered [facility] Allergies, Adverse Reactions, Alerts Type Allergy to [...] Order Detail nces retati t Range on Differential panel, method unspecified - (04-08-2017 17:20) Neutrop = 90 % 42-76 complet hil 017 ed count 17:20 Platele NORMAL complet t 017 NORMAL ed estimat 17:20 L e Monocyt = 4 % 2-9 complet e % 017 ed 17:20 LYMPH 3 % 10-50 complet 017 ed 17:20 Manual = 1 % 0-3 complet blood 017 ed eosinop 17:20 hils/10 0 leukocy wm Blood = 100 complet total 017 #CELLS ed cell 17:20 count Automat = 2 % 0-8 complet ed 017 ed blood 17:20 band neutrop hil percent a CBC w auto diff (04-08-2017 17:20) Blood = 11.5 4.8-10. complet leukocy 017 K/MM3 8 ed wm 17:20 count (number /volume ) Automat = 13.2 11.5-17 complet ed 017 % .5 ed erythro 17:20 cyte distrib ution width Red = 5.54 4.2-5.4 complet blood 017 M/mm3 ed cell 17:20 count Blood = 208 142-424 complet platele 017 K/mm3 ed t count 17:20 Automat = 8.3 7.4-10. complet ed 017 fl 4 ed blood 17:20 platele t mean volume tiki Letcher % = 2.2 % 1.7-9.3 complet 017 ed 17:20 Absolut = 0.3 0.1-1.0 complet e 017 K/mm3 ed monocyt 17:20 e count Automat = 89.9 82.2-97 complet ed 017 fl .8 ed erythro 17:20 cyte mean corpusc ular v Automat = 32.6 31.8-35 complet ed 017 g/dl .4 ed erythro 17:20 cyte mean corpusc ular h Mean = 29.3 27-31.2 complet corpusc 017 pg ed ular 17:20 hemoglo bin (MCH) determ Lymphoc = 2.5 % 10-50.0 complet yte 017 ed count, 17:20 blood, automat ed Absolut = 0.3 0.7-4.5 complet e 017 K/mm3 ed lymphoc 17:20 yte count Blood = 16.2 12.2-16 complet hemoglo 017 g/dL .2 ed bin 17:20 measure ment (mass/v olum Blood = 49.9 37.0-47 complet hematoc 017 % .0 ed rit 17:20 (volume fractio n) Granulo = 93.2 37.0-80 complet cyte 017 % .0 ed percent 17:20 age Blood = 10.7 1.8-7.8 complet granulo 017 K/mm3 ed cytes 17:20 automat ed count (numb Automat = 1.9 % 0.1-12. complet ed 017 0 ed blood 17:20 eosinop hils/10 0 leukocy t Automat = 0.2 0.0-0.4 complet ed 017 K/mm3 ed blood 17:20 eosinop hil count Baso % = 0.2 % 0.1-2.0 complet 017 ed 17:20 Automat = 0.0 0-0.2 complet ed 017 K/MM3 ed blood 17:20 basophi l count (count/ vo Blood lactic acid measurement (moles/vol (04-08-2017 17:20) Blood = 1.6 0.4-2.0 complet lactic 017 mmol/L ed acid 17:20 measure ment (moles/ vol Lipase measurement (04-08-2017 17:20) Lipase = 103 73-393 complet measure 017 U/L ed ment 17:20 Comprehensive metabolic panel (04-08-2017 17:20) Protein = 7.7 6.4-8.2 complet total 017 gm/dL ed ser/stefano 17:20 s ALT = 30 12-78 complet (SGPT) 017 U/L ed ser/stefano 17:20 s Serum = 21 15-37 complet or 017 U/L ed plasma 17:20 asparta te aminotr ansfera Serum = 139 136-145 complet sodium 017 mmoL/L ed measure 17:20 ment Serum = 3.9 3.5-5.1 complet potassi 017 mmoL/L ed um 17:20 measure ment Serum = 137 74-106 complet or 017 mg/dL ed plasma 17:20 glucose measure ment (mas Serum = 3.2 1.3-3.2 complet globuli 017 gm/dL ed n 17:20 measure ment (mass/v olume) Estimat = 55 59- complet ed 017 ML/MIN ed glomeru 17:20 lar filtrat ion rate (GF Comment: REFERENCE RANGE: >60 ML/MIN/1.73 SQUARE METERS Comment: If this patient is -Panamanian, then multiply the Comment: result by 1.210. Estimat = 76 50-200 complet ion of 017 ML/MIN ed creatin 17:20 ine renal clearan ce Serum = 1.0 0.55-1. complet or 017 mg/dL 02 ed plasma 17:20 creatin ine measure ment ( Carbon = 28 21.0-32 complet dioxide 017 mmoL/L .0 ed 17:20 measure ment Serum = 102 98-107 complet or 017 mmoL/L ed plasma 17:20 chlorid e measure ment (mo Serum = 9.4 8.5-10. complet or 017 mg/dL 1 ed plasma 17:20 calcium measure ment (mas Serum = 18 7-18 complet or 017 mg/dL ed plasma 17:20 urea nitroge n measure men Serum = 0.9 0.2-1.0 complet or 017 mg/dL ed plasma 17:20 total bilirub in measure m Serum = 108 46-116 complet or 017 U/L ed plasma 17:20 alkalin e phospha tase tiki Serum = 4.5 3.4-5.0 complet or 017 gm/dL ed plasma 17:20 albumin measure ment (mas Serum = 1.4 1.1-1.8 complet or 017 ed plasma 17:20 albumin /globul in mass ra Cardiac enzymes (04-08-2017 17:20) Serum < 0.02 0.00-0. complet or 017 ng/mL 06 ed plasma 17:20 troponi n i.cardi ac measu Serum = 111 26-192 complet or 017 U/L ed plasma 17:20 creatin e kinase measure m Serum = 0.9 0.0-3.6 complet or 017 ng/mL ed plasma 17:20 creatin e kinase MB measu Serum = 0.8 0-4.0 complet or 017 U/L ed plasma 17:20 creatin e kinase MB (CK-M Amylase ser/plas (04-08-2017 17:20) Amylase = 34 25-115 complet 017 U/L ed ser/stefano 17:20 s Comprehensive metabolic panel (03-23-2017 22:25) Protein = [...] SQUARE METERS Comment: If this patient is -Panamanian, then multiply the Comment: result by 1.210. Serum = 0.9 0.55-1. complet or 017 mg/dL 02 ed plasma 22:25 creatin ine measure ment ( Carbon = 32 21.0-32 complet dioxide 017 mmoL/L .0 ed 22:25 measure ment Serum = 105 98-107 complet or 017 mmoL/L ed plasma 22:25 chlorid e measure ment (mo Serum = 8.7 8.5-10. complet or 017 mg/dL [...] with AUTO DIFF (05-23-2013 06:05) WBC # 05-23- 6.9 4.8-10. complet Bld 013 K/MM3 8 ed Auto 06:05 RBC # 4.16 4.2-5.4 complet Bld 013 M/mm3 ed Auto 06:05 Hgb 9.9 12.2-16 complet Bld-mCn 013 g/dL .2 ed c 06:05 Hct Fr 32.5 % 37.0-47 complet Bld 013 .0 ed 06:05 MCV RBC 78.3 fl 82.2-97 complet 013 .8 ed 06:05 MCH RBC 23.9 pg 27-31.2 complet Qn 013 ed Auto 06:05 MEAN 30.5 31.8-35 complet CORPUSC 013 g/dl .4 ed ULAR 06:05 HGB CONC RDW RBC 15.6 % 11.5-17 complet Auto 013 .5 ed 06:05 Platele 296 142-424 complet t Bld 013 K/mm3 ed Ql 06:05 Manual MEAN 7.3 fl 7.4-10. complet PLATELE 013 4 ed T 06:05 VOLUME Granulo 69.7 % 37.0-80 complet cytes 013 .0 ed Fr Bld 06:05 Auto LYMPH % 23.7 % 10-50.0 complet 013 ed 06:05 [...] 013 K/mm3 ed Bld 06:05 Auto Basophi 12-12-2 0.0 0-0.2 complet ls # 013 K/MM3 ed Bld 06:05 Auto URINALYSIS/COMPLETE (05-23-2013 03:36) URINE 12-12-2 YELLOW YELLOW complet COLOR 013 ed 03:36 URINE 12-12-2 SL CLEAR complet APPEARA 013 CLOUDY ed NCE 03:36 URINE 12-12-2 NEGATIV NEG complet GLUCOSE 013 E ed - 03:36 DIPSTIC K URINE 12-12-2 NEGATIV NEG complet BILIRUB 013 E ed IN - 03:36 DIPSTIC K URINE 12-12-2 NEGATIV NEG complet KETONE 013 E mg/dL ed 03:36 URINE 12-12-2 1.025 1.005-1 complet SPECIFI 013 UNK .030 ed C 03:36 GRAVITY URINE 12-12-2 NEGATIV NEG complet BLOOD 013 E ed 03:36 URINE 12-12-2 6.0 UNK 5.0-8.5 complet PH 013 ed 03:36 URINE 12-12-2 NEGATIV NEG complet PROTEIN 013 E mg/dL ed - 03:36 DIPSTIC K URINE 12-12-2 0.2 NEG complet UROBILI 013 E.U./dL ed NOGEN - 03:36 DIPSTIC K URINE 12-12-2 NEGATIV NEG complet NITRATE 013 E ed - 03:36 DIPSTIC K URINE 2+ NEG complet LEUK 013 ed ESTERAS 03:36 E URINE OCC 0 complet RBC 013 rbc/hpf ed 03:36 URINE 20-50 O complet WBC 013 wbc/hpf ed 03:36 URINE 10-20 0-5 complet SQUAMOU 013 #/hpf ed S CELLS 03:36 URINE 3+ O complet BACTERI 013 ed A 03:36 COMPREHENSIVE METABOLIC PANEL (05-22-2013 17:00) Glucose 126 74-106 complet 013 mg/dL ed Bld-mCn 17:00 c BUN 10 7-18 complet Bld-mCn 013 mg/dL ed [...] 013 gm/dL ed SerPl-m 17:00 Cnc Globuli 4.6 1.3-3.2 complet n 013 gm/dL ed Ser-mCn 17:00 c Albumin 12-11-2 0.8 UNK 1.1-1.8 complet /Glob 013 ed SerPl-m 17:00 Rto Bilirub 12-11-2 0.6 0.2-1.0 complet 013 mg/dL ed SerPl-m 17:00 Cnc AST 12-11-2 43 U/L 15-37 complet SerPl-c 013 ed Cnc 17:00 ALT 12-11-2 80 U/L 30-65 complet SerPl-c 013 ed Cnc 17:00 ALP 12-11-2 270 U/L 50-136 complet SerPl-c 013 ed Cnc 17:00 CBC with AUTO DIFF (05-22-2013 17:00) WBC # 12-11-2 12.2 4.8-10. complet Bld 013 K/MM3 8 ed Auto 17:00 RBC # 12-11-2 5.25 4.2-5.4 complet Bld 013 M/mm3 ed Auto 17:00 Hgb 12-11-2 12.7 12.2-16 complet Bld-mCn 013 g/dL .2 ed c 17:00 Hct Fr 05-22-2 41.0 % 37.0-47 complet Bld 013 .0 ed 17:00 MCV RBC 12-11-2 78.0 fl 82.2-97 complet 013 .8 ed 17:00 MCH RBC 12-11-2 24.2 pg 27-31.2 complet Qn 013 ed Auto 17:00 MEAN 12-11-2 31.0 31.8-35 complet CORPUSC 013 g/dl .4 ed ULAR 17:00 HGB CONC RDW RBC 12-11-2 15.6 % 11.5-17 complet Auto 013 .5 ed 17:00 Platele 12-11-2 364 142-424 complet t Bld 013 K/mm3 ed Ql 17:00 Manual MEAN 12-11-2 6.8 fl 7.4-10. complet PLATELE 013 4 ed T 17:00 VOLUME Granulo 12-11-2 91.6 % 37.0-80 complet cytes 013 .0 ed Fr Bld 17:00 Auto LYMPH % 12-11-2 5.1 % 10-50.0 complet 013 ed 17:00 Monocyt 12-11-2 2.8 % 1.7-9.3 complet es Fr 013 ed Bld 17:00 Auto Eosinop 12-11-2 0.4 % 0.1-12. complet hil Fr 013 0 ed Bld 17:00 Auto Basophi 12-11-2 0.1 % 0.1-2.0 complet ls Fr 013 ed Bld 17:00 Auto Granulo --2 11.2 1.8-7.8 complet cytes # 013 K/mm3 ed Bld 17:00 Auto Lymphoc -11-2 0.6 0.7-4.5 complet ytes Fr 013 K/mm3 ed Bld 17:00 Auto Monocyt --2 0.3 0.1-1.0 complet es # 013 K/mm3 ed Bld 17:00 Auto Eosinop --2 0.1 0.0-0.4 complet hil # 013 K/mm3 ed Bld 17:00 Auto Basophi -11-2 0.0 0-0.2 complet ls # 013 K/MM3 ed Bld 17:00 Auto Encounters Encounter Start End Date Code Location Performer Type Date Inpatient IMP Td Arango MD ([place]) 3 17:32 3 16:45 [facility]
--- OUTSIDE RECORDS SUMMARY | 2017-04-16 10:39 | External Medical Summary Rpt | CCD ---
Author Author , SHANA SALDANA Address Unknown Phone [email or web address] Care Team Providers Care Asbestos Handler Name Role Phone Brendan Arango MD, Unavailable Unavailable Brendan Arango MD Purpose Continuity of Care Document - 05-22-2013 through 2016 Problems Code Diagnosis DOS Provider Status [id number] Aspiration [place] pneumonia [facility] 728.88 Rhabdomyoly [place] sis [facility] 780.97 Altered [facility] Allergies, Adverse Reactions, Alerts Type Allergy [...] blood 17:20 platele t mean volume tiki [place] % = 2.2 % 1.7-9.3 complet 017 [...] SQUARE METERS Comment: If this patient is -Georgian, then multiply the Comment: result by 1.210. [...] SQUARE METERS Comment: If this patient is -Georgian, then multiply the Comment: result by 1.210. [...] Arango MD ([place]) 3 17:32 3 16:45 [facility]
--- OUTSIDE RECORDS SUMMARY | 2017-04-16 10:40 | External Medical Summary Rpt | CCD ---
Author Author , SHANA SALDANA Address Unknown Phone [email or web address] Purpose Continuity of Care Document - through 2016
--- OUTSIDE RECORDS SUMMARY | 2017-04-16 10:40 | External Medical Summary Rpt | CCD ---
Demographics Preferred Language Upper Sorbian Marital Status Unknown Synagogue Affiliation Unknown Race Unknown Ethnic Group Unknown Author Author , SHANA SALDANA Address Unknown Phone Immunization Unable to retrieve immunization data due to connection failure with Immunization Registry. Please try again later.
--- OUTSIDE RECORDS SUMMARY | 2017-04-16 10:40 | External Medical Summary Rpt | CCD ---
Demographics Preferred Language Romanian Marital Status Unknown Oriental Orthodox Affiliation Unknown Race Unknown Ethnic Group Unknown Author Author , SHANA SALDANA Address Unknown Phone Immunization Unable to retrieve immunization data due to connection failure with Immunization Registry. Please try again later.
--- OUTSIDE RECORDS SUMMARY | 2017-04-16 10:40 | External Medical Summary Rpt | CCD ---
Author Author , SHANA SALDANA Address Unknown Phone [email or web address] Purpose Continuity of Care Document - through 2016
[2017-04-16] MEDS ORDERED: OMNICEF 300 MG300 MG PO (10:58)
[2017-04-16] MEDS ORDERED: FLONASE 50 MCG16 GM (10:58)
[2017-04-16] MEDS ORDERED: CLARITIN 10MG T10 MG PO (10:58)
[2017-04-16] MEDS ORDERED: ZOFRAN ODT4 MG PO (10:58)
[2017-04-16] MEDS ORDERED: PROMETHAZINE D118 ML PO (10:58)
--- NOTE | 2017-04-16 10:59 | Urgent Treatment Center Report ---
History of Present Issue Date/Time Seen by Provider 04/16/17 1046 Visit Reason Pt arrived:Walked Presenting Problem:C/O ZAPATA, SINUS CONGESTION, RUNNY NOSE, COUGH, AND NAUSEA Location if Accident: Onset of symptoms date/time:/ or onset unknown for:MEDICAL HX UNKNOWN Have you (or family members/close friends) recently traveled outside the [place]? N If Yes, where/when: Have you had exposure to infectious disease within the past month? TB? Other? Specify: Patient state that she feels like she may have a sinus infection again. State that she has had sinus headache, pain and pressure in her sinuses with drainage down the back of her throat that has made her have some nausea State that the drainage is also making her cough. State that she feel like her face is sore. ALLERGIES Coded Allergies: amoxicillin (01/28/16) clavulanic acid (From Augmentin) (01/28/16) sulfamethoxazole (From Bactrim) (01/28/16) trimethoprim (From Bactrim) (01/28/16) Home Medications Active Scripts LISINOPRIL (Lisinopril) 20 MG PO DAILY #30 TAB Ref 2 Prov: 04/28/12 Loperamide HCl (Imodium A-D) 2 MG PO DIRECTED #30 CAPSULE Prov: 04/08/17 ONDANSETRON HCL (Zofran 4MG Tab) 4 MG PO Q6HP PRN NAUSEA AND VOMITING #40 TAB Prov: 04/08/17 Loratadine (Claritin 10MG) 10 MG PO DAILY #30 TAB Prov: 02/21/17 Fluticasone Propionate (Flonase 50 Mcg Nasal [place]) 2 SPRAY NA DAILY #1 BOT Prov: 02/21/17 Reported Medications Gabapentin (Gabapentin 600MG) 1,200 MG PO BID Methocarbamol (Robaxin 500MG) 1,000 MG PO TID POLYETHYLENE GLYCOL (Miralax) 17 GM PO DAILY Pramipexole Dihydrochloride Mo (Mirapex 0.25 Mg Tablets) 0.25 MG PO TID Levothyroxine Sodium (Levothyroxine 0.025MG) 0.125 MG PO DAILY #30 TAB Ca Carbonate/Vitamin D3/Vit K (Calcium + D Soft Chewable Tab) 1 EACH PO DAILY Prednisone (Prednisone 5MG) 5 MG PO DAILY Azathioprine 50 MG PO DAILY Meloxicam (Meloxicam 15MG) 15 MG PO DAILY History Medical History General CAD? No Angina: No [place]: No Hypertension? Yes Hyperlipidemia? No CHF? No DVT? No PE? No COPD? No Asthma? No Anemia? No GERD? No Gastric ulcers? No GI Bleed? No Hernia? No Thyroid Problems? Yes Hypothyroidism? Yes CVA? No Seizures? No Diabetes? No Renal Insuffiency? No UTI? Yes Stones? No BPH? No GB Disease: No Nephritic Syndrome? No Asplenia? No Hepatitis? Yes Sickle Cell Disease? No Arthritis? Yes Migraines? No Cataracts? Yes Glaucoma? No MRSA? Yes HIV? No TB? No Anxiety? No Depression? No Cancer? No More? Yes Additional hx: HYPOTHYROID ARTHRITIS Immunization HX DT/Tetanus 1-4 Years Ago Flu 2014-16FSN Pneumonia Received In Past Surgical Hx Previous Surgery?Y COLONOSCOPY CATARACTS TONSILLECTOMY HYSTERECTOMY R WRIST R ANKLE BLADDER TUCK Family History Family HX Diabetes No CAD Yes Hypertension Yes Hyperlipidemia Yes Cancer Yes TB No Social History Smoking Hx Smoker: Former Smoker Tobacco: Yes Type Cigarettes Alcohol Alcohol: No Review of Systems All Other Systems Reviewed and Negative Constitutional chills ENT nose discharge, nose congestion, throat pain. Respiratory cough, denies shortness of breath, denies wheezing Gastrointestinal denies constipation, denies diarrhea, nausea, denies vomiting Psychiatric/Neurological headache Physical Exam Vital Signs Vital Signs Date Time Temp Pulse Resp B/P Pulse O2 O2 Flow FiO2 Ox Delivery Rate 04/16 1039 98.0 83 18 146/95 96 General Appearance Patient appears ill pale in color sitting on exam table Ear, Nose, Throat sinus pain/drainage, nasal congestion, throat red, irritated drainage noted, tenderness noted in maxillary and frontal sinuses report yellowish green thick draiange with sinus headache and pressure behind her eyes Respiratory Status Yes: trachea midline, chest symmetrical, non tender chest. No: respiratory distress. Lung Sounds bilateral: normal breath sounds, lungs clear. Cardiovascular normal exam, regular rate/rhythm Neurologic alert, normal exam, oriented x 3 Medical Decision Making LABS/Meds/Orders Pt receiving controlled substance in ED? No Results/Orders Current Medication Orders Sig/Fernando Start time Last Medication Dose Route Stop Time Status Admin Methylprednisolone 0 .STK-MED ONE 04/16 1047 DC Sodium Succinate .ROUTE Methylprednisolone 125 MG ONCE ONE 04/16 1045 DC 04/16 Sodium Succinate IM 04/16 1046 1058 Departure Departure Time of Disposition 1050 Disposition DC Home or Self Care(routine) Clinical Impression Primary Impression: Sinusitis Qualifiers: Sinusitis location: unspecified location Chronicity: unspecified Qualified Code: J32.9 - Chronic sinusitis, unspecified Condition STABLE Referrals Nba NOVOA,Brendan (Family): 3 Days-Call Office if no improvement Patient Instructions DI for Sinus Headache, DI for Sinusitis, Sinus Headache Additional Instructions * Monitor Temp. Tylenol and/or Ibuprofen as needed. ER if fever is no less than 101 despite alternating Tylenol and Ibuprofen * Encourage fluids, water, Gatorade, powerade, pedialyte if infant/toddler/or child * Warm salt water gargles for throat irritation *Warm fluids *Sore throat lozenges *Sleep elevated *humidifier or vaporizer Lots of rest Increase fluids, water, Gatorade, powerade *Flonase 2 sprays each nostril daily but may take 2-3 days to notice improvement with it Follow up IMMEDIATELY for new or worsening of symptoms OR no noticeable improvement over the next 48-72 hours. 911 immediately for any life threatening symptoms such as chest pain or difficulty breathing Discharge Counseling Counseled pt/family regarding diagnosis, medications/RX, home care, follow up needs Prescriptions Current Visit Scripts CEFDINIR (Cefdinir) 300 MG PO BID #20 CAP Fluticasone Propionate (Flonase 50 Mcg Nasal [place]) 2 SPRAY NA DAILY #1 BOT Loratadine (Claritin 10MG) 10 MG PO DAILY #30 TAB Ref 2 Ondansetron (Zofran 4MG Odt) 4 MG PO Q6HP PRN NAUSEA AND VOMITING #20 TAB PROMETHAZINE/DEXTROMETHORPHAN (Promethazine-Dm Syrup) 5 ML PO Q4HP PRN cough #150 SYR at 1058
[2017-04-16 11:02] VITALS: BP 146/95
== END 2017-04-16 11:03 | disposition home or self-care (01) ==
LOC: UTC 10:27
DX: J32.9 Chronic sinusitis, unspecified (principal); Z87.891 Personal history of nicotine dependence; I10 Essential (primary) hypertension; E03.9 Hypothyroidism, unspecified

== ENCOUNTER 2017-05-18 14:24 | Emergency (ER) | payer OTHER, MEDICARE ==
[~2017-05-18] VITALS: Ht 165.1 cm; Wt 90.7 kg
[~2017-05-18 14:24] MED LIST changes: +OMNICEF 300 MG300 MG PO; +PROMETHAZINE D118 ML PO
--- OUTSIDE RECORDS SUMMARY | 2017-05-18 15:33 | External Medical Summary Rpt | CCD ---
Author Author , SHANA SALDANA Address Unknown Phone [email or web address] Care Team Providers Care Telecommunications Repairer Name Role Phone Brendan Arango MD, Unavailable Unavailable Brendan Arango MD Purpose Continuity of Care Document - 05-22-2013 through 2016 Problems Code Diagnosis DOS Provider Status [id number] Aspiration [place] pneumonia [facility] 728.88 Rhabdomyoly [facility] 780.97 Altered [facility] A09 INFECTIOUS GASTROENTER ITIS AND COLITIS, UNSPECIFIED B34.9 VIRAL INFECTION, UNSPECIFIED E03.9 HYPOTHYROID ISM, UNSPECIFIED E78.5 HYPERLIPIDE ALIYAH, UNSPECIFIED E86.0 DEHYDRATION 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 [...] complet 017 U/L ed ser/stefano 17:20 s Differential panel, method unspecified - (04-08-2017 17:20) LYMPH 3 % 10% - Low complet 017 50% ed 17:20 Platele NORMAL complet ts 017 ed [Presen 17:20 ce] in Blood by Light microsc opy Comprehensive metabolic panel (03-23-2017 22:25) Protein 10-12-2 = 7.0 6.4-8.2 complet total 017 gm/dL [...] SQUARE METERS Comment: If this patient is -[place]amoan, then multiply the Comment: result by 1.210. [...] complet 013 .8 ed 06:05 MCH RBC 12-12-2 23.9 pg 27-31.2 complet Qn 013 ed Auto 06:05 MEAN 12-12-2 30.5 31.8-35 complet CORPUSC 013 g/dl .4 ed ULAR 06:05 HGB CONC RDW RBC 12-12-2 15.6 % 11.5-17 complet Auto 013 .5 ed 06:05 Platele 12-12-2 296 142-424 complet t Bld 013 K/mm3 ed Ql 06:05 Manual MEAN 1212-2 7.3 fl 7.4-10. complet PLATELE 013 4 ed T 06:05 VOLUME Granulo 12-12-2 69.7 % 37.0-80 complet cytes 013 .0 ed Fr Bld 06:05 Auto LYMPH % 12-12-2 23.7 % 10-50.0 complet 013 ed 06:05 [...] E ed - 03:36 DIPSTIC K URINE 05-23-2 NEGATIV NEG complet BILIRUB 013 E ed IN - 03:36 DIPSTIC K URINE 05-23-2 NEGATIV NEG complet KETONE 013 E mg/dL ed 03:36 URINE 05-23-2 1.025 1.005-1 complet SPECIFI 013 UNK .030 ed C 03:36 GRAVITY URINE 2 NEGATIV NEG complet BLOOD 013 E ed 03:36 URINE 05-23-2 6.0 UNK 5.0-8.5 complet PH 013 ed 03:36 URINE 2 NEGATIV NEG complet PROTEIN 013 E mg/dL ed - 03:36 DIPSTIC K URINE 2 0.2 NEG complet UROBILI 013 E.U./dL ed NOGEN - 03:36 DIPSTIC K URINE 2 NEGATIV NEG complet NITRATE 013 E ed - 03:36 DIPSTIC K URINE 2 2+ NEG complet LEUK 013 ed ESTERAS 03:36 E URINE 2 OCC 0 complet RBC 013 rbc/hpf ed [...] SerPl-s 013 mmoL/L ed Cnc 17:00 Potassi 12-11-2 4.3 3.5-5.1 complet um 013 mmoL/L ed SerPl-s 17:00 Cnc Chlorid -11-2 103 98-107 complet e 013 mmoL/L ed SerPl-s 17:00 Cnc CO2 -11-2 29 21.0-32 complet SerPl-s 013 mmoL/L .0 ed Cnc 17:00 Calcium 12-11-2 8.5 8.5-10. complet 013 mg/dL 1 ed SerPl-m 17:00 Cnc Prot 12-11-2 8.3 6.4-8.2 complet SerPl-m 013 gm/dL ed Cnc 17:00 Albumin 12-11-2 3.7 3.4-5.0 complet 013 gm/dL ed SerPl-m 17:00 Cnc Globuli --2 4.6 1.3-3.2 complet n 013 gm/dL ed [...] Bld 013 .0 ed 17:00 MCV RBC -11-2 78.0 fl 82.2-97 complet 013 .8 ed 17:00 MCH RBC -11-2 24.2 pg 27-31.2 complet Qn 013 ed Auto 17:00 MEAN 05-22-2 31.0 31.8-35 complet CORPUSC 013 g/dl .4 ed ULAR 17:00 HGB CONC RDW RBC 05-22-2 15.6 % 11.5-17 complet Auto 013 .5 ed 17:00 Platele --2 364 142-424 complet t Bld 013 K/mm3 ed Ql 17:00 Manual MEAN 6.8 fl 7.4-10. complet PLATELE 013 4 ed T 17:00 VOLUME Granulo 05-22-2 91.6 % 37.0-80 complet cytes 013 .0 ed Fr Bld 17:00 Auto LYMPH % --2 5.1 % 10-50.0 complet 013 ed 17:00 Monocyt --2 2.8 % 1.7-9.3 complet es Fr 013 ed Bld 17:00 Auto Eosinop -11-2 0.4 % 0.1-12. complet hil Fr 013 [...] 013 K/mm3 ed Bld 17:00 Auto Eosinop -11-2 0.1 0.0-0.4 complet hil # 013 K/mm3 ed Bld 17:00 Auto Basophi 12-11-2 0.0 0-0.2 complet ls # 013 K/MM3 ed Bld 17:00 Auto Encounters Encounter Start End Date Code Location Performer Type Date Inpatient IMP Td Arango MD ([place]) 3 17:32 3 16:45 [facility]
--- OUTSIDE RECORDS SUMMARY | 2017-05-18 15:33 | External Medical Summary Rpt | CCD ---
Author Author , SHANA SALDANA Address Unknown Phone [email or web address] Care Team Providers Care Support Coordinator Name Role Phone Brendan Arango MD, Unavailable Unavailable Brendan Arango MD Purpose Continuity of Care Document - 05-22-2013 through 2016 Problems Code Diagnosis DOS Provider Status [id number] Aspiration [place] pneumonia [facility] 728.88 Rhabdomyoly [facility] 780.97 Altered [facility] A09 INFECTIOUS GASTROENTER ITIS AND COLITIS, [...] blood 17:20 platele t mean volume tiki [place] % = 2.2 % 1.7-9.3 complet 017 [...] SQUARE METERS Comment: If this patient is -Scottish, then multiply the Comment: result by 1.210. [...] SQUARE METERS Comment: If this patient is -[place]ish, then multiply the Comment: result by 1.210. [...] Arango MD ([place]) 3 17:32 3 16:45 [facility]
--- OUTSIDE RECORDS SUMMARY | 2017-05-18 15:34 | External Medical Summary Rpt | CCD ---
Author Author , SHANA SALDANA Address Unknown Phone [email or web address] Immunization Name Date Rout CVX Reac Dose Comm Prov Is Faci e tion ent ider Refu lity Give sed n PPV2 02-0 Intr 33 0.5 Hist PD20 No PD20 3 1-20 amus mL oric 255 255 17 cula al r Info rmat ion - Sour ce Unsp ecif ied
--- OUTSIDE RECORDS SUMMARY | 2017-05-18 15:34 | External Medical Summary Rpt | CCD ---
Author Author , SHANA SALDANA Address Unknown Phone [email or web address] Purpose Continuity of Care Document - through 2016
--- OUTSIDE RECORDS SUMMARY | 2017-05-18 15:34 | External Medical Summary Rpt | CCD ---
Author Author , SHANA SALDANA Address Unknown Phone [email or web address] Purpose Continuity of Care Document - through 2016
--- OUTSIDE RECORDS SUMMARY | 2017-05-18 15:34 | External Medical Summary Rpt | CCD ---
Author Author , SHANA SALDANA Address Unknown Phone [email or web address] Immunization Name Date Rout CVX Reac Dose Comm Prov Is Faci e tion ent ider Refu lity Give sed n PPV2 02-0 Intr 33 0.5 Hist PD20 No PD20 3 1-20 amus mL oric 255 255 17 cula al r Info rmat ion - Sour ce Unsp ecif ied
--- OUTSIDE RECORDS SUMMARY | 2017-05-18 15:35 | External Medical Summary Rpt ---
Author Author [employer], [employer] Organization [employer] Address Unknown Phone Unavailable Results CBC W Auto Differential panel in Blood Observa Value Referen Units Interpr Notes Date tion ce etation Range Basophils 0 - 0.2 K/MM3 Normal No Apr 08 informati 2016 5:20 [#/volume on in PM ] in source Blood by data Automated count Basophils 0.1 - 2.0 % Normal No Apr 08 /100 informati 2016 5:20 leukocyte on in PM s in source Blood by data Automated count Eosinophi 0.0 - 0.4 K/mm3 Normal No Apr 08 ls informati 2016 5:20 [#/volume on in PM ] in source Blood by data Automated count Eosinophi 0.1 - % Normal No Apr 08 ls/100 12.0 informati 2016 5:20 leukocyte on in PM s in source Blood by data Automated count Granulocy 1.8 - 7.8 K/mm3 High No Apr 08 wm informati 2016 5:20 [#/volume on in PM ] in source Blood by data Automated count Granulocy 37.0 - % High No Apr 08 wm/100 80.0 informati 2016 5:20 leukocyte on in PM s in source Blood by data Automated count Hematocri 37.0 - % High No Apr 08 t [Volume 47.0 informati 2016 5:20 on in PM Fraction] source of Blood data Hemoglobi 12.2 - g/dL No No Apr 08 n 16.2 informati informati 2016 5:20 [Mass/vol on in on in PM ume] in source source Blood data data Lymphocyt 0.7 - 4.5 K/mm3 Low No Apr 08 es informati 2016 5:20 [#/volume on in PM ] in source Unspecifi data ed specimen by Automated count Lymphocyt 10 - 50.0 % Low No Apr 08 es informati 2016 5:20 [#/volume on in PM ] in source Unspecifi data ed specimen by Automated count Erythrocy 27 - 31.2 pg Normal No Apr 08 te mean informati 2016 5:20 corpuscul on in PM ar source hemoglobi data n [Entitic mass] Erythrocy 31.8 - g/dl Normal No Apr 08 te mean 35.4 inform2016 5:20 corpuscul on in PM ar source hemoglobi data n concentra tion [Mass/vol ume] by Automated count Erythrocy 82.2 - fl Normal No Apr 08 te mean 97.8 informati 2016 5:20 corpuscul on in PM ar volume source [Entitic data volume] by Automated count Monocytes 0.1 - 1.0 K/mm3 Normal No Apr 08 inform2016 5:20 [#/volume on in PM ] in source Blood by data Automated count Monocytes 1.7 - 9.3 % Normal No Apr 08 /100 inform2016 5:20 leukocyte on in PM s in source Blood by data Automated count Platelet 7.4 - fl Normal No Apr 08 mean 10.4 informati 2016 5:20 volume on in PM [Entitic source volume] data in Blood by Automated count Platelets 142 - 424 K/mm3 Normal No Apr 082016 5:20 [#/volume on in PM ] in source Blood data Erythrocy 4.2 - 5.4 M/mm3 High No Apr 08 wm informati 2016 5:20 [#/volume on in PM ] in source Amniotic data fluid Erythrocy 11.5 - % Normal No Apr 08 te 17.5 inform2016 5:20 distribut on in PM ion width source [Entitic data volume] by Automated count Leukocyte 4.8 - K/MM3 High No Apr 08 s 10.8 informati 2016 5:20 [#/volume on in PM ] in source Blood data Differential panel, method unspecified - Observa Value Referen Units Interpr Notes Date tion ce etation Range Neutrophi 0 - 8 % Normal No Apr 08 ls.band informati 2016 5:20 form/100 on in PM leukocyte source s in data Blood by Automated count Eosinophi 0 - 3 % Normal No Apr 08 ls/100 informati 2016 5:20 leukocyte on in PM s in source Blood by data Manual count LYMPH 3 10 - 50 % Low No Apr 08 informa 2017 tion in 5:20 PM source data Monocytes 2 - 9 % Normal No Apr 08 /100 informati 2016 5:20 leukocyte on in PM s in source Blood by data Automated count Platele NORMAL No No No No Apr 08 ts informa informa informa informa 2016 [Presen tion in tion in tion in tion in 5:20 PM ce] in source source source source Blood data data data data by Light microsc opy Neutrophi 42 - 76 % High No Apr 08 ls informati 2016 5:20 [#/volume on in PM ] in source Blood by data Automated count Cells No #CELLS No No Apr 08 Counted informati informati informati 2016 5:20 Total [#] on in on in on in PM in Blood source source source data data data Lactate [Moles/volume] in Blood Observa Value Referen Units Interpr Notes Date tion ce etation Range Lactate 0.4 - 2.0 mmol/L Normal No Apr 08 [Moles/vo informati 2016 5:20 lume] in on in PM Blood source data Comprehensive metabolic 2000 panel in Serum or Plasma Observa Value Referen Units Interpr Notes Date tion ce etation Range Albumin/G 1.1 - 1.8 No Normal No Mar 23 lobulin informati informati 2016 [Mass on in on in 10:25 PM ratio] in source source Serum or data data Plasma Albumin 3.4 - 5.0 gm/dL Normal No Mar 23 [Mass/vol informati 2016 ume] in on in 10:25 PM Serum or source Plasma data Alkaline 46 - 116 U/L Normal No Mar 23 phosphata informati 2016 se on in 10:25 PM [Enzymati source c data activity/ volume] in Serum or Plasma Bilirubin 0.2 - 1.0 mg/dL Normal No Mar 12 .total informati 2016 [Mass/vol on in 10:25 [...] Carbon 21.0 - mmoL/L Normal No Mar 23 dioxide, 32.0 informati 2016 total on in 10:25 PM [Moles/vo source lume] in data Serum or Plasma Creatinin 0.55 - mg/dL Normal No Mar 12 e 1.02 informati 2017 [Mass/vol on in 10:25 PM ume] in source Serum or data Plasma Estimated 59- ML/MIN No REFERENCE Mar 12 informati RANGE: 2017 glomerula on in >60 10:25 PM r source ML/MIN/1. filtratio data 73 SQUARE n rate METERSIf (GF this patient is -A merican, then multiply theresult by 1.210. Globulin 1.3 - 3.2 gm/dL Normal No Mar 23 [Mass/vol informati 2016 ume] in on in 10:25 PM Serum source data Glucose 74 - 106 mg/dL High No Mar 23 [Mass/vol informati 2016 ume] [...] - 37 U/L Normal No Mar 23 informati 2016 aminotran on in 10:25 PM sferase source [Enzymati data c activity/ volume] in Serum or Plasma Alanine 12 - 78 U/L Normal No Mar 23 aminotran inform2016 sferase on in 10:25 PM [Enzymati source [...] No Normal No Sep lobulin informati informati 2016 [Mass on in on in 11:47 AM ratio] in source source Serum or data data Plasma Albumin 3.4 - 5.0 gm/dL Normal No Mar 10 [Mass/vol informati 2016 ume] in on in 11:47 AM Serum or source Plasma data Alkaline 46 - 116 U/L High No Sep phosphata informati 2017 se on in 11:47 AM [Enzymati source c data activity/ volume] in Serum or Plasma Bilirubin 0.2 - 1.0 mg/dL Normal No Sep 29 .total informati 2017 [Mass/vol on in 11:47 AM ume] in source Serum or data Plasma Urea 7 - 18 mg/dL Normal No Sep 29 nitrogen informati 2017 [Mass/vol on in 11:47 [...] Normal No Sep 29 e 1.02 informati 2016 [Mass/vol on in 11:47 AM [...] mg/dL Normal No Sep 29 [Mass/vol informati 2016 ume] in on in 11:47 AM Serum or source Plasma data Potassium 3.5 - 5.1 mmoL/L Normal No Sep 29 informati 2016 [Moles/vo on in 11:47 AM lume] in source Serum or data Plasma Sodium 136 - 145 mmoL/L Normal No Sep 29 [Moles/vo informati 2017 lume] in on in 11:47 AM Serum or source Plasma data Aspartate 15 - 37 U/L Normal No Sep 29 informati 2016 aminotran on in 11:47 AM sferase source [Enzymati data c activity/ volume] in Serum or Plasma Alanine 12 - 78 U/L Normal No Sep 29 aminotran informati 2017 sferase on in 11:47 AM [Enzymati source c data activity/ volume] in Serum or Plasma Protein 6.4 - 8.2 gm/dL Normal No Sep 29 [Mass/vol informati 2016 ume] in on in 11:47 AM Serum or source Plasma data CBC W Auto Differential panel in Blood Observa Value Referen Units Interpr Notes Date tion ce etation Range Basophils 0 - 0.2 K/MM3 Normal No Sep 29 inform2016 [#/volume on [...] 7.8 K/mm3 Normal No Sep 29 wm inform2016 [#/volume on in 11:47 AM ] in source Blood by data Automated count Granulocy 37.0 - % Normal No Sep 29 wm/100 80.0 informati 2016 leukocyte on in 11:47 AM s in source Blood by data Automated count Hematocri 37.0 - % Normal No Sep 29 t [Volume 47.0 informati 2016 on in 11:47 AM Fraction] source of Blood data Hemoglobi 12.2 - g/dL Normal No Sep 29 n 16.2 inform2016 [Mass/vol on in 11:47 AM ume] in source Blood data Lymphocyt 0.7 - 4.5 K/mm3 Normal No Sep 29 es inform2016 [#/volume on in 11:47 AM ] in source Unspecifi data ed specimen by Automated count Lymphocyt 10 - 50.0 % Normal No Sep 29 es informati 2016 [#/volume on in 11:47 AM ] in source Unspecifi data ed specimen by Automated count Erythrocy 27 - 31.2 pg Normal No Sep 29 te mean informati 2016 corpuscul on in 11:47 AM ar source hemoglobi data n [Entitic mass] Erythrocy 31.8 - g/dl Low No Sep 29 te mean 35.4 informati 2016 corpuscul on in 11:47 AM ar source [...] Normal No Sep 29 mean 10.4 informati 2016 volume on in 11:47 AM [Entitic source volume] data in Blood by Automated count Platelets 142 - 424 K/mm3 Normal No Sep 29 inform2016 [#/volume [...] Normal No Sep 14 lobulin informati informati 2016 3:44 [Mass on in on in PM ratio] in source source Serum or data data Plasma Albumin 3.4 - 5.0 gm/dL Normal No Sep 14 [Mass/vol informati 2016 3:44 ume] in on in PM Serum or source Plasma data Alkaline 46 - 116 U/L Normal No Sep 14 phosphata informati 2016 3:44 se on in PM [Enzymati source c data activity/ volume] in Serum or Plasma Bilirubin 0.2 - 1.0 mg/dL Normal No Sep 14 .total informati 2016 3:44 [Mass/vol on in PM ume] in source Serum or data Plasma Urea 7 - 18 mg/dL Normal No Sep 14 nitrogen informati 2017 3:44 [Mass/vol on in PM ume] in source Serum or data Plasma Calcium 8.5 - mg/dL Normal No Sep 14 [Mass/vol 10.1 informati 2016 3:44 ume] in on in [...] Normal No Sep 14 e 1.02 informati 2017 3:44 [Mass/vol on in PM ume] in source Serum or data Plasma Estimated 59- ML/MIN Low REFERENCE Sep 14 RANGE: 2017 3:44 glomerula >60 PM r ML/MIN/1. filtratio [...] - 5.1 mmoL/L Normal No Sep 14 informati 2016 3:44 [Moles/vo on in PM lume] in source Serum or data Plasma Sodium 136 - 145 mmoL/L Normal No Sep 14 [Moles/vo informati 2016 3:44 lume] in on in PM Serum or source Plasma data Aspartate 15 - 37 U/L Normal No Sep 14 informati 2016 3:44 aminotran on in PM sferase source [...] 37 U/L Normal No Dec 30 informati 2017 4:45 aminotran on in PM sferase source [...] in PM Serum or source Plasma data [id number].tumor marker [Mass/volume] in Serum or Plasma Observa Value Referen Units Interpr Notes Date tion ce etation Range Alpha-1-f 0.0 - 8.3 ng/mL No Lauren Dec 16 etoprotei informati ECLIA 2017 3:21 n.tumor on in methodolo PM marker source gyPerform [Mass/vol data ed at: ume] in CB - Serum or [facility] Plasma [address] [address] [address] [place], [place] [id number] Retail Financial Analyst: Artem Chu PhD, Phone: [phone] Comprehensive metabolic 2000 panel in Serum or Plasma Observa Value Referen Units Interpr Notes Date tion ce etation Range Albumin/G 1.1 - 1.8 No Normal No Dec 16 lobulin informati informati 2016 3:21 [Mass on in on in PM ratio] in source source Serum or data data Plasma Albumin 3.4 - 5.0 gm/dL Normal No Dec 16 [Mass/vol informati 2017 3:21 ume] in on in PM Serum or source Plasma data Alkaline 46 - 116 U/L High No Dec 16 phosphata informati 2016 3:21 se on in PM [Enzymati source c data activity/ volume] in Serum or Plasma Bilirubin 0.2 - 1.0 mg/dL Normal No Dec 16 .total informati 2017 3:21 [Mass/vol on in PM ume] in source Serum or data Plasma Urea 7 - 18 mg/dL High No Dec 16 nitrogen informati 2017 3:21 [Mass/vol on in PM ume] in [...] Carbon 21.0 - mmoL/L Normal No Dec 16 dioxide, 32.0 informati 2016 3:21 total on in PM [Moles/vo source lume] in data Serum or Plasma Creatinin 0.55 - mg/dL Normal No Dec 16 e 1.02 informati 2016 3:21 [Mass/vol on in PM [...] - mg/dL Normal No Nov 30 e 1.02 informati 2016 8:55 [Mass/vol on in AM [...] ML/MIN No REFERENCE November 02 informati RANGE: 2017 7:55 glomerula on in >60 AM r [...] - 5.1 mmoL/L Normal No November 02 informati 2016 7:55 [Moles/vo on in AM [...] ume] in data Serum or Plasma by calculati on Triglycer 30 - 200 mg/dL Normal [...] - 2.0 % Normal No November 02 / informati 2016 7:55 leukocyte on in AM [...] No November 02 te mean 97.8 informati 2016 7:55 corpuscul on in AM ar volume source [Entitic data volume] by Automated count Monocytes 0.1 - 1.0 K/mm3 Normal No November 02 informati 2016 7:55 [#/volume on in AM ] in source Blood by data Automated count Monocytes 1.7 - 9.3 % Normal No November 02 /100 informati 2016 7:55 leukocyte on in AM [...]
--- OUTSIDE RECORDS SUMMARY | 2017-05-18 15:35 | External Medical Summary Rpt ---
[...] in PM Serum or source Plasma data [id number].tumor marker [Mass/volume] in Serum or Plasma Observa Value Referen Units Interpr Notes Date tion ce etation Range Alpha-1-f 0.0 - 8.3 ng/mL No Lauren Dec 16 etoprotei informati ECLIA 2017 3:21 n.tumor on in methodolo PM marker source gyPerform [Mass/vol data ed at: ume] in CB - Serum or [facility] Plasma [address] [address] [address] [place], [place] [id number] Disabilities Caregiver: Artem Chu PhD, Phone: [phone] Comprehensive metabolic 2000 panel in Serum [...]
--- NOTE | 2017-05-18 16:10 | Urgent Treatment Center Report ---
History of Present Issue Date/Time Seen by Provider 05/18/17 5376 Visit Reason Pt arrived:Walked Presenting Problem:COUGH, FEVER ACHES BEGAN YESTERDAY Location if Accident: Onset of symptoms date/time:/ or onset unknown for:MEDICAL HX UNKNOWN Have you (or family members/close friends) recently traveled outside the [place]? N If Yes, where/when: Have you had exposure to infectious disease within the past month? TB? Other? Specify: Patient states that she has been having pain and pressure in her sinuses States that she has been having cough, fever and body aches along with sinus pain and pressure State that she feels the pressure behind her eyes and ears and states that when she bends over she feels dizzy State that she noticed earlier today that when she tried to stand up she was starting to get dizzy with movement ALLERGIES Coded Allergies: amoxicillin (01/28/16) clavulanic acid (From Augmentin) (01/28/16) sulfamethoxazole (From Bactrim) (01/28/16) trimethoprim (From Bactrim) (01/28/16) Home Medications Active Scripts LISINOPRIL (Lisinopril) 20 MG PO DAILY #30 TAB Ref 2 Prov: 04/28/12 CEFDINIR (Cefdinir) 300 MG PO BID #20 CAP Prov: 04/16/17 Fluticasone Propionate (Flonase 50 Mcg Nasal [place]) 2 SPRAY NA DAILY #1 BOT Prov: 04/16/17 Loratadine (Claritin 10MG) 10 MG PO DAILY #30 TAB Ref 2 Prov: 04/16/17 Ondansetron (Zofran 4MG Odt) 4 MG PO Q6HP PRN NAUSEA AND VOMITING #20 TAB Prov: 04/16/17 PROMETHAZINE/DEXTROMETHORPHAN (Promethazine-Dm Syrup) 5 ML PO Q4HP PRN cough #150 SYR Prov: 04/16/17 Loperamide HCl (Imodium A-D) 2 MG PO DIRECTED #30 CAPSULE Prov: 04/08/17 ONDANSETRON HCL (Zofran 4MG Tab) 4 MG PO Q6HP PRN NAUSEA AND VOMITING #40 TAB Prov: 04/08/17 Loratadine (Claritin 10MG) 10 MG PO DAILY #30 TAB Prov: 02/21/17 Fluticasone Propionate (Flonase 50 Mcg Nasal [place]) 2 SPRAY NA DAILY #1 BOT Prov: 02/21/17 Reported Medications Gabapentin (Gabapentin 600MG) 1,200 MG PO BID Methocarbamol (Robaxin 500MG) 1,000 MG PO TID POLYETHYLENE GLYCOL (Miralax) 17 GM PO DAILY Pramipexole Dihydrochloride Mo (Mirapex 0.25 Mg Tablets) 0.25 MG PO TID Levothyroxine Sodium (Levothyroxine 0.025MG) 0.125 MG PO DAILY #30 TAB Ca Carbonate/Vitamin D3/Vit K (Calcium + D Soft Chewable Tab) 1 EACH PO DAILY Prednisone (Prednisone 5MG) 5 MG PO DAILY Azathioprine 50 MG PO DAILY Meloxicam (Meloxicam 15MG) 15 MG PO DAILY History Medical History General CAD? No Angina: No [place]: No Hypertension? Yes Hyperlipidemia? No CHF? No DVT? No PE? No COPD? No Asthma? No Anemia? No GERD? No Gastric ulcers? No GI Bleed? No Hernia? No Thyroid Problems? Yes Hypothyroidism? Yes CVA? No Seizures? No Diabetes? No Renal Insuffiency? No UTI? Yes Stones? No BPH? No GB Disease: No Nephritic Syndrome? No Asplenia? No Hepatitis? Yes Sickle Cell Disease? No Arthritis? Yes Migraines? No Cataracts? Yes Glaucoma? No MRSA? Yes HIV? No TB? No Anxiety? No Depression? No Cancer? No More? Yes Additional hx: HYPOTHYROID ARTHRITIS Immunization HX DT/Tetanus 1-4 Years Ago Flu 2014-16FSN Pneumonia Received In Past Surgical Hx Previous Surgery?Y COLONOSCOPY CATARACTS TONSILLECTOMY HYSTERECTOMY R WRIST R ANKLE BLADDER TUCK Family History Family HX Diabetes No CAD Yes Hypertension Yes Hyperlipidemia Yes Cancer Yes TB No Social History Smoking Hx Smoker: Never Smoker Tobacco: No Alcohol Alcohol: No Review of Systems All Other Systems Reviewed and Negative Constitutional chills, fever ENT nose congestion, throat pain. Respiratory cough, denies shortness of breath, denies wheezing Physical Exam Vital Signs Vital Signs Date Time Temp Pulse Resp B/P Pulse O2 O2 Flow FiO2 Ox Delivery Rate 05/18 1546 100.8 89 20 148/93 98 General Appearance normal appearance, WD/WN, no apparent distress Ear, Nose, Throat sinus pain/drainage, nasal congestion, Tenderness noted maxillary and frontal sinus, throat red, irritated drainage noted Respiratory Status Yes: trachea midline, chest symmetrical, non tender chest. No: respiratory distress. Lung Sounds bilateral: normal breath sounds, lungs clear. Cardiovascular normal exam, regular rate/rhythm, no peripheral edema Neurologic alert, normal exam, oriented x 3 Medical Decision Making LABS/Meds/Orders Pt receiving controlled substance in ED? No Results/Orders Laboratory Tests 05/18/17 1626: Influenza Type A Ag NOT DETECTED, Influenza Type B Ag NOT DETECTED Current Medication Orders Sig/Fernando Start time Last Medication Dose Route Stop Time Status Admin Meclizine HCl 0 .STK-MED ONE 05/18 161 DC .ROUTE Methylprednisolone 0 .STK-MED ONE 05/18 1618 DC Sodium Succinate .ROUTE Meclizine HCl 12.5 MG ONCE ONE 05/18 1615 DC 05/18 PO 05/18 161 1623 Methylprednisolone 125 MG ONCE ONE 05/18 161 DC 05/18 Sodium Succinate IM 05/18 161 1619 Orders Procedure Date/time Status [facility] FLU A,B 05/18 162 Complete CHEST(2 VIEWS-NOT PORTABLE) 05/18 161 Active XRAY/CT/US XRAY/CT/US XRAY chest XR interpretation by discussed w/radiologist Xray Results no infiltrates Progress [facility] Progress Notes 1 Comment Discussed Patient with Sal Pate and agreed Levaquin 750mg once daily for 7 days and follow up with Dr Arango [facility] Progress Notes 2 Comment Patient state that she is feeling better after medication and state that she is starting to have cramping in her legs from sitting State that she is ready to go home with family Departure Departure Time of Disposition 1639 Disposition DC Home or Self Care(routine) Clinical Impression Primary Impression: Sinusitis Qualifiers: Sinusitis location: unspecified location Chronicity: unspecified Qualified Code: J32.9 - Chronic sinusitis, unspecified Condition STABLE Referrals Brendan Arango MD (Family): 3 Days-Call Office Patient Instructions DI for Sinusitis, DI for Vertigo, Sinusitis, Vertigo Additional Instructions Start antibiotic. Sinus infections may take 2-3 days to notice much improvement so be sure to use conservative measures as discussed for symptoms Ok to continue Sudafed Flonase 2 spray in each nostril daily to help with nasal congestion, sinus an ear pressure/inflammation Lots of Fluids Sleep elevated Humidifer/vaporizer Discharge Counseling Counseled pt/family regarding diagnosis, test results, medications/RX, home care, follow up needs Prescriptions Current Visit Scripts Levofloxacin (Levaquin 750mg) 750 MG PO DAILY #5 TAB MECLIZINE HCL (ANTIVERT 25MG (generic)) 25 MG PO BID #30 TAB Albuterol Sulfate (Proair Hfa) 2 PUFFS IH QID #1 INH Ref 1 at 4671
[2017-05-18] MEDS ORDERED: LEVAQUIN 750 M750 MG PO (16:42)
[2017-05-18] MEDS ORDERED: MECLIZINE HYDRO25 M2 PO (16:43)
[2017-05-18] MEDS ORDERED: PROAIR HFA0.09 MG/AC IH (16:44)
[2017-05-18 16:49] VITALS: BP 142/92
--- NOTE | 2017-05-18 16:54 | RADIOLOGY REPORT PS360 ---
CHEST(2 VIEWS-NOT PORTABLE) HISTORY: cough and congestion ORDERING PHYSICIAN: LYNNE ZAMARRIPA APRN PATIENT AGE: 71 years COMPARISON: 01/25/2016 FINDINGS: There is mild cardiomegaly without failure. There is a calcified granuloma in the right middle lobe laterally. No lobar consolidation or collapse. No acute bony anomalies. The nodular opacity noted in the infrahilar region on the previous exam is somewhat less apparent probably due to overlapping vessel. IMPRESSION: 1. Cardiomegaly without failure. 2. No acute finding.
== END 2017-05-18 16:50 | disposition home or self-care (01) ==
LOC: UTC 14:24
DX: J32.9 Chronic sinusitis, unspecified (principal); R05 Cough; R50.9 Fever, unspecified